=== PATIENT | male | born 1970 | race Two or more races ===

== ENCOUNTER 2017-09-05 18:00 | Emergency (ER) | payer BC, OTHER ==
[~2017-09-05] VITALS: Ht 170.2 cm; Wt 87.5 kg
--- OUTSIDE RECORDS SUMMARY | 2017-09-05 18:02 | XMS REPORT | Continuity of Care Document ---
Author Author [facility] Organization [facility] Address [address] [place] [address] ;ext= Care Team Providers Care Merchant Seaman Name Role Phone CHRIS STARR Admphys CHRIS STARR Attphys Hospital Admission Diagnosis Code Admission Diagnosis Date [id number] Chest pain Social History Element Description Code Description Smoking Status Code System Start Date End Date Smoking Status [id number] Never smoker SNOMED-CT Problems Code Code System Problem Name Start Date End Date Status [id number] SNOMED-CT Pulmonary embolism 2012 Active 9153571 SNOMED-CT Supraventricular tachycardia 2010 Active LUMBAR SURGERY Unknown Active Medications RxNorm Medication Dose Route Instructions Indications Start Date End Date Status 241107 Acetaminophen 325 MG / Hydrocodone Bitartrate 10 MG Oral Tablet 1 tablet Oral orally every 4 to 6 hours as needed. pain Active 456034 Labetalol hydrochloride 100 MG Oral Tablet 100 milligram Oral orally every 12 hours Active 62452 tizanidine 4 milligram Oral orally every 4-6 h as needed. muscle spasm Active Allergies Code Code System Allergy Substance Type Reaction Severity Start Date End Date Status 973489 RXNorm Ambien Drug allergy Unknown Active 78229 RXNorm Toradol Drug allergy Unknown Active Results Laboratory Results Order: ED2 TROPONIN I QUANTITATIVE LOINC Test Result Flag Range Unit Date 1Troponin-I 0 0.000-0.034 ng/ml 07/16/2017 14:00 Note: The 99th Percentile URL is 0.034 ng/mL. The Joint Society of Cardiology/[place] [employer] (ESC/ACC) and the National Academy of Clinical Biochemistry Standards of Laboratory Practices (NACB) recommends that the diagnosis of AMI includes the presence of clinical history suggestive of Acute Coronary Syndrome (ACS) and a maximum concentration of cardiac troponin exceeding the 99th percentile of a normal reference population [upper reference limit (URL)] on at least one occasion during the first 24 hours after the clinical event. * Performing Lab Footnotes:* [address] [place] [address] - [id number] - [address] [facility] [address] [place] [id number] FORTUNATO Luu MD: DIRECTOR ARNULFO DE LA ROSA Order: ED2 BMP LOINC Test Result Flag Range Unit Date 1Sodium 142 128-145 mmol/l 07/16/2017 11:11 1Potassium 3.5 L 3.6-5.1 mmol/l 07/16/2017 11:11 1CO2 24 18-33 mmol/l 07/16/2017 11:11 1Chloride 105 98-108 mmol/l 07/16/2017 11:11 1Glucose 196 H 73-118 mg/dl 07/16/2017 11:11 1Calcium 8.3 8.0-10.3 mg/dl 07/16/2017 11:11 1BUN 10 7-22 mg/dl 07/16/2017 11:11 1Creatinine 0.9 0.6-1.2 mg/dl 07/16/2017 11:11 * Performing Lab Footnotes:* [address] [place] [address] - [id number] - [address] [facility] [address] [place] [address], [place] [address] FORTUNATO Luu MD: DIRECTOR ARNULFO DE LA ROSA Order: ED2 CBC LOINC Test Result Flag Range Unit Date 1WBC 6.1 3.5-10.0 10^9/L 07/16/2017 11:11 1LY% 33 15.0-50.0 % 07/16/2017 11:11 1MIDS% 7.2 2.0-15.0 % 07/16/2017 11:11 1Granulocytes % 59.8 35.0-80.0 % 07/16/2017 11:11 1Lymphocytes 2 0.5-5.0 10^9/L 07/16/2017 11:11 1MID 0.4 0.1-1.5 10^9/L 07/16/2017 11:11 1Granulocytes 3.7 1.2-8.0 10^9/L 07/16/2017 11:11 1RBC 4.06 3.50-5.50 10^12/L 07/16/2017 11:11 1Hemoglobin 10.1 L 11.5-16.5 gm/dl 07/16/2017 11:11 1Hematocrit 31.4 L 35.0-55.0 % 07/16/2017 11:11 1MCV 77.4 75.0-100.0 fL 07/16/2017 11:11 1MCH 25 25.0-35.0 pg 07/16/2017 11:11 1MCHC 32.2 31.0-38.0 gm/dl 07/16/2017 11:11 1RDW % 17.9 H 11.0-16.0 % 07/16/2017 11:11 1Platelet 279 100-400 10^9/L 07/16/2017 11:11 1MPV 7.3 A 8.0-11.0 fL 07/16/2017 11:11 * Performing Lab Footnotes:* [address] [place] [address] - [id number] - [address] [facility] [address] - [place], [place] [address] [facility] - : DIRECTOR ARNULFO DE LA ROSA Order: ED2 PRO BNP LOINC Test Result Flag Range Unit Date 1Pro-BNP(B-Peptide) <15 0-125 07/16/2017 11:11 Note: THE METHODOLOGY FOR DETECTION OF B-NATRIURETIC PEPTIDE HAS BEEN CHANGED TO 'NT pro-BNP'. THE NORMAL RANGES HAVE CHANGED. PLEASE NOTE THAT RANGES ARE DEFINED BY THE AGE OF THE PATIENT. (<75 years old=0-125 pg/ml 75years and older=0-450pg/ml). VALUES ARE NOT INTERCHANGEABLE BETWEEN METHODS. 06-19-2006 * Performing Lab Footnotes:* [address] [place] [address] - [id number] - [address] [address] - [place] [address] [facility] - MD: DIRECTOR ARNULFO DE LA ROSA Radiology Results Order: [id number] ED2 CT ANGIO CHEST W CONTRAST* Exam Completion Date:07/16/2017 11 :45 Procedures: ED2 CT ANGIO CHEST W CONTRASTExam Date: 07/16/2017 11:45 AMOrdering Physician: CHRIS STARRClinical Indication: rule out peComparison: Chest CT, 02/22/14; chest radiograph, 02/13/18TECHNIQUE: Spiral multislice scanning was obtained through the thorax and aportion of the upper abdomen with a high rate of intravenous contrast infusionfor opacification of the pulmonary arteries. 2-D reconstructions were obtainedaccording to our usual protocol, utilizing a slice thickness of 3 mm or less.This exam was performed according to the our departmental dose-optimizationprogram which includes automated exposure control, adjustment of the mA and/orkV according to patient size and/ or use of iterative reconstruction techniques.Findings: NECK: Thyroid: Limited evaluation is without significant abnormality.Lymph nodes: Limited evaluation is without significant abnormality.Soft tissues: Limited evaluation is without significant abnormality.Vascular: Limited evaluation is without significant abnormality.MEDIASTINUM: Aorta: Atherosclerotic calcific plaque of the coronary arteries, aorta, andmajor branches. Airways: No significant abnormality.Lymph nodes: No lymphadenopathy.Heart: No significant abnormality.Esophagus: No significant abnormality.LUNGS: Pneumothorax: None.Lungs: Minimal bilateral dependent atelectasis. No worrisome pulmonary nodulesor masses. Effusion: None. Vascular: The pulmonary arterial vasculature is well opacified for evaluationof pulmonary embolism. No significant filling defects are demonstrated withinthe pulmonary trunk, main pulmonary arteries, segmental, or subsegmentalbranches. Airways: No significant abnormality.UPPER ABDOMEN: Hypoattenuation of the liver is consistent with hepaticsteatosis. No intrahepatic masses or lesions. Normal morphologic appearance ofthe liver. The gallbladder is present. Visualized portions of the pancreas,spleen, adrenal glands, kidneys, and gastrointestinal tract are withoutsignificant abnormality.OSSEOUS: Degenerative changes of the spine. No significant osseousabnormalities are otherwise demonstrated.OTHER: Subcutaneous port catheter is positioned within the right upper thoraxwith catheter tip overlying the superior cavoatrial junction.IMPRESSION: 1. No pulmonary embolism of the pulmonary trunk, main pulmonary arteries,segmental, or subsegmental branches.2. Other chronic disease findings, as above.This final report was electronically signed by Dr Marjorie Jang MD 07/16/2017 12: 39 PMDictated By: MARJORIE TIERNEYDate: 07/16/2017 12:46 Order: [id number] ED2 XR CHEST 2 PA LATERAL* Exam Completion Date:07/16/2017 11:00 Procedures: ED2 XR CHEST 2 PA LATERALExam Date: 07/16/2017 11:00 AMOrdering Physician: CHRIS Guevarainical Indication: cp/sobComparison: Chest radiograph 02/22/14Findings: Technique: Frontal and lateral radiographs of the chest. Medical devices: Subcutaneous port catheter overlies the right upper thoraxwith catheter tip overlying the superior cavoatrial junction. Pneumothorax: No pneumothorax. Lungs: No acute radiographic abnormalities of the pulmonary parenchyma.Effusion: None.Aorta: No significant abnormality.Heart: Normal. Bones: No significant abnormalities.Upper abdomen : Limited evaluation is without significant abnormality.Impression: No acute radiographic abnormalities of the thorax. This final report was electronically signed by Dr Marjorie Jang MD 07/16/2017 12:41 PMDictated By : MARJORIE TIERNEYDate: 07/16/2017 12:47 Vital Signs Vitals Value Date Respiratory Rate 17 07/16/2017 O2% BldC Oximetry 98 07/16/2017 BP Systolic 131 mmHg 07/16/2017 BP Diastolic 93 mmHg 07/16/2017 Height 67 in 07/16/2017 Weight Measured 187 lbs 07/16/2017 BSA (Body Surface Area) 1.71810 07/16/2017 BMI (Body Mass Index) 29.3 07/16/2017 Body Temperature 98.7 F 07/16/2017 Plan of Care * No data in the system Procedures Code Code System Procedure Name Target Site Date of Procedure ED2 XR CHEST 2 PA LATERAL 07/16/2017 12:[address] ANGIO CHEST W CONTRAST 07/16/2017 12:46 Encounters Date Code Diagnosis Status (ICD10) - R079 CHEST PAIN UNSPECIFIED Active Immunizations Vaccine Code Code System Vaccine Name Date Status FLU PNEUM Completed Functional Status * No data in the system Hospital Discharge Instructions * Discharge Instructions 2* Discharge Diagnosis* Chest Pain * Important Information* Consult your physician or return to the Emergency Department immediately if worse, if not better as expected, or if any problems arise. * Follow Up Care* Yes * Important Information* Please understand that you have received care only on an emergency basis. If your condition does not improve, you should call your personal physician for follow-up care. If you do not have a physician, you may call the referred physician listed. * If you have questions about your care or these discharge instructions, you may call the Emergency Department. Please take your discharge paperwork with you to any follow-up appointments. * Follow Up Care* Patient To Schedule * Follow-Up With:* Primary Care Physician * Activity Level* As tolerated, unrestricted * Patient Teaching* Patient education provided
--- OUTSIDE RECORDS SUMMARY | 2017-09-05 18:02 | XMS REPORT | Clinical Summary ---
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 Morphine Rash Low 04/03/2017 Break out. Ketorolac 04/03/2017 Rashes Current Medications Prescription Sig. Disp. Refills Start End Date Status Date clopidogrel (PLAVIX) 75 Take 75 mg by mouth every Active mg tablet morning. atorvastatin (LIPITOR) 40 Take 40 mg by mouth Active MG tablet nightly. HYDROcodone-acetaminophen Take 1 tablet by mouth Active (NORCO) 10-325 mg per every 4 (four) hours as tablet needed for moderate pain. fondaparinux (ARIXTRA) Inject 7.5 mg under the Active 7.5 mg/0.6 mL syringe skin every morning. tiZANidine (ZANAFLEX) 4 Take 8 mg by mouth every Active MG tablet 6 (six) hours as needed for muscle spasms. buprenorphine HCl Apply 300 mcg to cheek 2 Active (BELBUCA) 300 mcg film (two) times a day. lisinopril Take 5 mg by mouth every Active (PRINIVIL,ZESTRIL) 5 mg morning. tablet promethazine (PHENERGAN) Take 25 mg by mouth every 0 07/19/19 Active 25 MG tablet 4 (four) hours as needed. 18 BYSTOLIC 20 mg tablet Take 20 mg by mouth every 0 07/19/19 Active morning. 18 nitroglycerin (NITROSTAT) Place 0.4 mg under the Active 0.4 MG SL tablet tongue every 5 (five) minutes as needed. lisinopril Take 10 mg by mouth 07/28/19 Discontin (PRINIVIL,ZESTRIL) 10 mg daily. 18 ued tablet HYDROcodone-acetaminophen Take 1 tablet by mouth 02/16/20 Discontin (NORCO) 10-325 mg per every 4 (four) hours as 18 ued tablet needed. 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 CAD (coronary artery disease) 05/04/2016 Encounters Date Type Specialty Care Team Description 08/13/2017 [facility] General Internal Medicine Dano Ramos DO - Encounter 08/16/2017 08/13/2017 Orders Only General Internal Medicine Dano Ramos DO 07/28/2017 [facility] General Surgery Filomena Arti Chest pain in adult - Encounter MD Cuate (Primary Dx); 07/29/2017 Acquired coagulation factor deficiency; Coronary artery disease involving [place] heart with unstable angina pectoris, unspecified vessel or lesion type 04/09/2017 [facility] General Internal Medicine Vineet Fregoso MD Encounter 04/03/2017 [facility] General Internal Medicine Vineet Fregoso MD Atypical chest pain - Encounter (Primary Dx) 04/04/2017 12/19/2016 Second Opinion Hotel Maintenance Technician Orlando Drew 12/16/2016 [facility] General Internal Medicine Vineet Fregoso MD Encounter 12/15/2016 [facility] Intensive Care Deng To MD Encounter 11/06/2015 Hospital Lab Ming Robles, - Encounter 10/22/2016 after 09/04/2016 Family History Medical History Relation Name Comments Factor V Leiden Father deficiency Heart disease Mother Relation Name Status Comments Father Factor 5 Mother Social History Tobacco Use Types Packs/Day Years Used Date Never Smoker Tobacco Cessation: Counseling Given: No Alcohol Use Drinks/Week oz/Week Comments No Sex Assigned at Date Recorded Not on file Last Filed Vital Signs Vital Sign Reading Time Taken Blood Pressure 109/58 08/16/2017 2:57 AM ETHICAL HACKER Pulse 78 08/16/2017 2:57 AM ETHICAL HACKER Temperature 36.3 C (97.3 F) 08/16/2017 2:57 AM ETHICAL HACKER Respiratory Rate 18 08/16/2017 2:57 AM ETHICAL HACKER Oxygen Saturation 100% 08/16/2017 2:57 AM ETHICAL HACKER Inhaled Oxygen - - Concentration Weight 86.2 kg (190 lb) 07/28/2017 11:49 PM ETHICAL HACKER Height 170.2 cm (5' 7") 08/13/2017 3:20 PM ETHICAL HACKER Body Mass Index 28.06 07/28/2017 11:49 PM ETHICAL HACKER Plan of Treatment Health Maintenance Due Date Last Done Comments INFLUENZA VACCINE 01/10/2017 03/04/2016, 05/11/2015, 04/12/2012 Procedures Procedure Name Priority Date/Time Associated Diagnosis Comments ECHOCARDIOGRAM 2D Routine 04/04/2017 Results for this COMPLETE W MMODE SPECTRAL 8:30 AM CDT procedure are in the COLOR [facility]PLER (67127) results section. after 09/04/2016 Results * Direct Angie' (NEFTALI) (08/15/2017 10:28 AM) Component Value Ref Range Direct Angie POS Comment: testing performed at [facility], called gabi in 3main with critical 08/15/17 at 2000 Specimen Performing Laboratory [facility] DEPARTMENT OF PATHOLOGY AND GENOMIC MEDICINE [address] [place] [address] [place] [address] * Antibody identification (08/15/2017 10:28 AM) Component Value Ref Range Antibody ID POS, Anti-EComment: ADDING GCBC CHARGES Antibody ID POS, Anti-KellComment: ADDING GCBC CHARGES Antibody ID POS, Bg AntibodyComment: ADDING GCBC CHARGES Specimen Performing Laboratory [facility] DEPARTMENT OF PATHOLOGY AND GENOMIC MEDICINE [address] [place] [address] [place] [address] * Prepare RBC, 2 Units (08/15/2017 10:28 AM) Component Value Ref Range Product name Red Blood Cells -1, Leukored Unit number [id number] Product code [id number] Dispense status Transfused Blood expiration date Blood type code 6200 Blood type A POSITIVE Product name Red Blood Cells -1, Leukored Unit number [id number] Product code [id number] Dispense status Transfused Blood expiration date Blood type code 6200 Blood type A POSITIVE Specimen Performing Laboratory [facility] DEPARTMENT OF PATHOLOGY AND GENOMIC MEDICINE [address] [place] [address] [place] [address] * Type and screen (08/15/2017 10:28 AM) Component Value Ref Range ABO grouping AB Rh type POS Antibody screen POS Specimen Performing Laboratory Blood [facility] DEPARTMENT OF PATHOLOGY AND [address] [place] [address] * CBC with platelet and differential (08/15/2017 8:35 AM) Only the most recent of 5 results within the time period is included. Component Value Ref Range WBC 4.36 (L) 4.50 - 11.00 k/uL RBC 2.94 (L) 4.40 - 6.00 m/uL HGB 7.1 (L) 14.0 - 18.0 g/dL HCT 23.7 (L) 41.0 - 51.0 % MCV 80.6 (L) 82.0 - 100.0 fL MCH 24.1 (L) 27.0 - 34.0 pg MCHC 30.0 (L) 31.0 - 37.0 g/dL RDW - SD 55.8 (H) 37.0 - 55.0 fL MPV 9.5 8.8 - 13.2 fL Platelet count 280 150 - 400 k/uL Nucleated RBC 0.00 /100 WBC Neutrophils 41.6 39.0 - 69.0 % Lymphocytes 39.0 25.0 - 45.0 % Monocytes 16.7 (H) 0.0 - 10.0 % Eosinophils 2.3 0.0 - 5.0 % Basophils 0.2 0.0 - 1.0 % Immature granulocytes 0.2Comment: "Immature granulocytes" 0.0 - 1.0 % (promyelocytes, myelocytes, metamyelocytes) Specimen Performing Laboratory Blood [facility] DEPARTMENT PATHOLOGY AND [address] [place] [address] * Vancomycin level, trough (08/15/2017 8:35 AM) Component Value Ref Range Vancomycin, trough 6.1 (L) 10.0 - 20.0 ug/mL Comment: Therapeutic Ranges: Peak 30.0 - 40.0 ug/mL Trough 10.0 - 20.0 ug/mL Specimen Performing Laboratory Serum [facility] DEPARTMENT PATHOLOGY AND [address] [place] [address] * CT Angiogram Pe Chest (08/14/2017 2:28 PM) Specimen Performing Laboratory [address] [address] Narrative EXAMINATION: CT ANGIOGRAM PE CHEST CLINICAL HISTORY:46 years Male PE r o TECHNIQUE:CT angiographic images of the chest were obtained during intravenous administration of iodinated contrast. Computerized reformatted images and 3-D MIP images were also obtained and archived (CT pulmonary embolus protocol). CT imaging was performed with iterative reconstruction techniques and/or automated exposure control to reduce radiation dose. COMPARISON: None. FINDINGS: The thyroid appears unremarkable. There are no abnormal mediastinal or hilar lymph nodes identified. A right-sided ported central catheter projects with its tip in the superior vena cava above the right atrium No emboli are identified within the pulmonary vessels. There is no evidence of aneurysm or dissection involving the aorta Views of the upper abdomen which were obtained demonstrate a calcification projecting in the area of the left upper pole measuring approximately 6 to 7 mm. Within the lungs there are no pulmonary parenchymal nodules masses or areas of focal consolidation. Minimal linear opacity at the left lung base suggests an area of mild atelectasis or scar. The bones of the thorax appear osteopenic but appear intact. Impression: 1. No emboli identified. 2. Mild scarring at the lung bases. [id number] Procedure Note Hm Interface, Radiology Results Incoming - 08/14/2017 2:52 PM ETHICAL HACKER EXAMINATION: CT ANGIOGRAM PE CHEST CLINICAL HISTORY:46 years Male PE r o TECHNIQUE: CT angiographic images of the chest were obtained during intravenous administration of iodinated contrast. Computerized reformatted images and 3-D MIP images were also obtained and archived (CT pulmonary embolus protocol). CT imaging was performed with iterative reconstruction techniques and/or automated exposure control to reduce radiation dose. COMPARISON: None. FINDINGS: The thyroid appears unremarkable. There are no abnormal mediastinal or hilar lymph nodes identified. A right-sided ported central catheter projects with its tip in the superior vena cava above the right atrium No emboli are identified within the pulmonary vessels. There is no evidence of aneurysm or dissection involving the aorta Views of the upper abdomen which were obtained demonstrate a calcification projecting in the area of the left upper pole measuring approximately 6 to 7 mm. Within the lungs there are no pulmonary parenchymal nodules masses or areas of focal consolidation. Minimal linear opacity at the left lung base suggests an area of mild atelectasis or scar. The bones of the thorax appear osteopenic but appear intact. Impression: 1. No emboli identified. 2. Mild scarring at the lung bases. [id number] * Blood culture, aerobic & anaerobic (08/14/2017 10:40 AM) Component Value Ref Range Blood culture isolate No growth after 5 days of incubation. Comment: Specimen Information Specimen Source: Blood Specimen Site: Line, port-a-cath Right Specimen Performing Laboratory Blood - Line, port-a-cath [facility] DEPARTMENT OF PATHOLOGY AND GENOMIC MEDICINE [address] [place] [address] * Influenza antigen (08/14/2017 10:10 AM) Component Value Ref Range Influenza antigen Negative for Influenza A/B antigen. Comment: Specimen Information Specimen Source: Nares Specimen Site: Not specified Specimen Performing Laboratory Nares - Not specified [facility] DEPARTMENT OF PATHOLOGY AND GENOMIC MEDICINE [address] [place] [address] [place] [address] * Estimated GFR (08/14/2017 5:10 AM) Only the most recent of 4 results within the time period is included. Component Value Ref Range GFR Non Af Amer 59 (A) mL/min/1.73 m2 GFR Af Amer 72 mL/min/1.73 m2 Comment: Chronic kidney disease: <60 mL/min/1.73m2 Kidney failure: <15 mL/min/1.73m2 The estimated GFR is calculated from the IDMS-traceable Modification of Diet in Renal Disease Equation. The accuracy of the calculation is poor when the creatinine is normal. Calculated values >90 mL/min/1.73m2 are not reported. This equation has not been validated in children (<18 years), women, the elderly (>70 years), or ethnic groups other than Caucasians and Americans. Specimen Performing Laboratory Plasma specimen [facility] DEPARTMENT OF PATHOLOGY AND GENOMIC [address] [place] [address] * Basic metabolic panel (08/14/2017 5:10 AM) Only the most recent of 4 results within the time period is included. Component Value Ref Range Sodium 133 (L) 135 - 148 mEq/L Potassium 4.1 3.5 - 5.0 mEq/L Chloride 97 (L) 98 - 112 mEq/L CO2 24 24 - 31 mEq/L Anion gap 12 7 - 15 mEq/L Comment: Starting from September , anion gap calculation no longer incorporates potassium. Please note the change. BUN 20 6 - 20 mg/dL Creatinine 1.3 (H) 0.7 - 1.2 mg/dL Glucose 119 (H) 65 - 99 mg/dL Calcium 8.8 8.3 - 10.2 mg/dL Specimen Performing Laboratory Plasma specimen [facility] PATHOLOGY AND [employer] [facility] [address] [place] [address] * Troponin (08/14/2017 12:07 AM) Only the most recent of 8 results within the time period is included. Component Value Ref Range Troponin <0.300 0.000 - 0.300 ng/mL Comment: 0.30 - 1.49 ng/ml May indicate increased risk of acute coronary syndrome. >=1.5 ng/ml Consistent with acute myocardial infarction. The diagnostic value of a single normal or non-diagnostic result is questionable. Serial samples at 2-6 hour intervals are required to rule out acute myocardial injury. Specimen Performing Laboratory Plasma specimen [facility] PATHOLOGY AND [facility] [address] [place] [address] * Lipid panel (08/13/2017 2:47 PM) Only the most recent of 2 results within the time period is included. Component Value Ref Range Cholesterol 189 <200 mg/dL Triglycerides 65 <150 mg/dL HDL cholesterol 72 >40 mg/dL LDL cholesterol 116 (H)Comment: Result obtained by direct LDL <100 mg/dL measurement Lipid panel SeeBelow interpretation Comment: Total Cholesterol (mg/dL) <200 Desirable 200-239 Borderline-high >=240 High Triglycerides (mg/dL) <150 Normal 150-199 Borderline-high 200-499 High >=500 Very high HDL Cholesterol (mg/dL) <40 Low (male) <40 Low (female) LDL Cholesterol (mg/dL) <100 Optimal 100-129 Near or above optimal 130-159 Borderline-high 160-189 High >=190 Very high Risk Catergories that modify LDL goals. Risk Catergories LDL goal (mg/dL) CHD and CHD risk equivalent <100 (10-year risk >20%) Multiple (2+) risk factors <130 (10-year risk=<20%) 0-1 risk factors <160 (<10-year risk) Defining levels of lipids in metabolic syndrome Triglycerides >=150 mg/dL HDL Cholesterol Men <40 mg/dL Women <40 mg/dL Non-HDL cholesterol is a second target for therapy in persons with high triglycerides (>=200 mg/dL) Specimen Performing Laboratory Plasma specimen [facility] PATHOLOGY AND [facility] [address] [place] [address] * ECG 12 lead (07/29/2017 11:02 AM) Only the most recent of 5 results within the time period is included. Component Value Ref Range Ventricular rate 76 Atrial rate 76 DC interval 180 QRSD interval 88 QT interval 368 QTC interval 414 P axis 1 47 QRS axis 1 34 T wave axis 44 EKG impression Normal sinus rhythm-Normal ECG-In automated comparison with ECG of 28-JUL-2017 22:59,-No significant change was found- Specimen Performing Laboratory [facility] [address] [place] [address] * Echocardiogram complete w contrast and 3D if needed (04/04/2017 8:30 AM) Component Value Ref Range Velocity Ratio (V1/V2) 0.74 m/s IVS,d 0.95 0.6 - 1.2 cm Ao root annulus 3.08 cm EF 57.77 % LVPWD,d 0.87 cm AoV Mean PG 2.71 mmHg AV LVOT peak gradient 2.88 mmHg MV valve area p 1/2 4.63 cm2 method PV Pk Grad 2.20 mmHg E/A ratio 0.98 E wave decelartion time 164.00 msec IVRT 117.65 msec LVOT Diam,S 2.04 cm LVOT area 3.27 cm2 LVOT Vmax 0.85 m/s LVOT VTI 0.17 m AoV Peak PG 5.32 mmHg MV Peak E John 0.54 m/s MV stenosis pressure 1/2 47.56 ms time MV Peak A John 0.55 m/s AoV Area, Vmax 2.40 cm2 AoV Area, VTI 2.78 cm2 AoV Vmax 1.15 m/s IVS/LVPW,2D 1.09 LA Area d A4C 12.88 cm2 LV,d 3.79 cm LV,s 2.66 cm PV VMAX 0.74 m/s MV E A ratio 0.97 mmHg LV SYS VOL 25.93 ml LV NEWBY VOL 61.40 ml LV SV Teich 2D 35.47 ml LV Vol s Teich PSAX 25.93 ml AoV Vmn 0.78 LA Ao Ratio Mmode 1.15 LV FS Cube 2D 29.86 LV FS Teich 2D 29.86 AoV VTI 0.20 m LV EF,2D 65.49 % MV AE ratio 1.03 LVOT Vmn 0.64 Aov area Vmn 2.67 cm2 LA Vol d MOD A4C 32.07 ml LVOT mean grad 1.74 mmHg LV SV Cube 2D 35.53 ml LV vol d cube 2D 54.25 ml LV vol s cube 2D 18.72 ml MV Decel slope 3.27 m/s2 Specimen Performing Laboratory [facility] [address] [place] [address] Narrative The left ventricle is not well visualized, grossly normal wall motion. Left Ventricular ejection fraction is 55 - 60%. Spectral Doppler shows normal pattern of LV diastolic filling The aortic valve appears normal Trace mitral valve regurgitation The tricuspid valve appears normal The pulmonic valve appears normal Normal right ventricular size, wall thickness and global function * CK-MB (04/04/2017 12:12 AM) Only the most recent of 3 results within the time period is included. Component Value Ref Range CK-MB 1.3 1.0 - 10.4 ng/mL Specimen Performing Laboratory Plasma specimen [facility] PATHOLOGY AND [address] [address] * D-dimer (04/04/2017 12:12 AM) Component Value Ref Range D-dimer 0.36 0.00 - 0.40 ug/mL Comment: Units are ug/ml Fibrinogen Equivalent Unit. When combined with low clinical probability, D-dimer results of less than 0.5 ug/ml FEU have a good negative predictive value in excluding PE or DVT. For D-dimer results greater than 0.5 ug/ml FEU further testing is indicated if PE or DVT is suspected clinically. Elevated D-dimer results have been reported in DVT, PE, and DIC cases and may indicate the presence of a clot. D-dimer results may be elevated due to old age, , inflammatory diseases, trauma, post-operative states, sepsis, and malignancies. Specimen Performing Laboratory Blood [facility] PATHOLOGY AND [address] [address] * Creatine kinase, total (CPK) (04/04/2017 12:12 AM) Only the most recent of 3 results within the time period is included. Component Value Ref Range Creatine kinase 98 39 - 308 U/L Specimen Performing Laboratory Plasma specimen [facility] PATHOLOGY AND [address] [address] * Partial thromboplastin time, activated (12/15/2016 1:50 PM) Component Value Ref Range PTT 29.7 23.0 - 36.0 sec Comment: PTT therapeutic range for unfractionated heparin is 61.0-112.0 seconds which corresponds to Anti-Xa 0.3-0.7 U/ml. Specimen Performing Laboratory Blood [facility] PATHOLOGY AND GENOMIC MEDICINE [address] [place] [address] * Prothrombin time with INR (12/15/2016 1:50 PM) Component Value Ref Range Prothrombin time 13.6 12.0 - 15.0 sec INR 1.0 Comment: The International Normalized Ratio (INR) is a therapeutic monitoring tool for patients who are stable on oral anticoagulant therapy. An INR of 2.0-3.0 is suggested for deep vein thrombosis/pulmonary embolism. Specimen Performing Laboratory Blood [facility] OF PATHOLOGY AND GENOMIC MEDICINE [address] [place] [address] * Magnesium level (12/15/2016 1:50 PM) Component Value Ref Range Magnesium 1.9 1.7 - 2.4 mg/dL Specimen Performing Laboratory Plasma specimen [facility] OF PATHOLOGY AND GENOMIC MEDICINE [address] [place] [address] * POC glucose (12/15/2016 1:44 PM) Component Value Ref Range POC glucose 129 (H) 65 - 99 mg/dL Comment: [facility] Notified RN Meter ID: [id number] Code Enforcement Inspector: Zee Horvath Specimen Performing Laboratory [facility] PATHOLOGY AND [employer] MEDICINE [address] [place] [address] after 09/04/2016 Insurance Payer Benefit Subscriber ID Type Phone Address Plan / Group BCBS EXCHANGE BLUE xxxxxxxxxxxx Exchange ADVANTAGE HMO EXCH Home:
--- OUTSIDE RECORDS SUMMARY | 2017-09-05 18:02 | XMS REPORT ---
Author Author [facility] Address Unknown Phone Unavailable Care Team Providers Care Leisure Studies Professor Name Role Phone MARC SARABIA Unavailable Unavailable CHRIS STARR Unavailable Unavailable OMARMILADIS Sadler Unavailable Unavailable FREEMAN, BHAGWAT Unavailable Unavailable Divinsky, Ianir Unavailable Unavailable SRESHTA, DAHLIA Unavailable Unavailable RAY-DRODDY, SAMMY Unavailable Unavailable Problems This patient has no known problems. Allergies, Adverse Reactions, Alerts This patient has no known allergies or adverse reactions. Medications This patient has no known medications. Encounters Start Date/Time End Date/Time Encounter Type Admission Type Attending [facility] Care Department Encounter ID 2017-08-17 13:45:00 2017-08-17 17:07:00 Emergency E MARC SARABIA [facility] [id number] Results Test Description Test Time Test Comments Text Results Atomic Results Result Comments CARDIAC PANEL TRIAGE GP 2017-08-17 16:40:00 TROPONIN I (test code=GTPI) <0.05 ng/mL <=0.05 CKMB (test code=GCKMP) <1.0 ng/mL <=4.2 DRUGS OF ABUSE*GP*2017-08-17 15:54:00* Test Item Value Reference Range Comments DRUG SCRN (test code=HDOA) URINE DRUG SCREEN This is an unconfirmed screening result and should not be used for non-medical purposes PHENCYCLID (test code=GPCP) Negative NEGATIVE BENZODIAZP (test code=GBZO) Negative NEGATIVE COCAINE (test code=GCOC) Negative NEGATIVE AMPHETHETM (test code=GAMP) Negative NEGATIVE THC (test code=GTHC) Negative NEGATIVE OPIATES (test code=JOLENE) Positive NEGATIVE BARBITURAT (test code=GBAR) Negative NEGATIVE DOAH (test code=GDOAH) URINE DRUG SCREEN Cut-off values are as follows: Phencyclidine 25 ng/mL Tetrahydrocannabinol 50 ng/mL Benzodiazepines 300 ng/mL Opiates 300 ng/mL Cocaine 300 ng/mL Barbiturates 300 ng/mL Amphetamines 1000 ng/mL CT PE PROTOCOL*GP*2017-08-17 15:51:58CT CHEST WITH CONTRAST, PE PROTOCOL: Location code: [id number] HISTORY: [id number]: Chest pain, shortness of breathCOMPARISON: 06/15/16, 11/03/15, 04/28/15, 01/26/15TECHNIQUE: Following the administration of a timed IV contrast bolus, helicalCT of the chest was performed. Thin section axial, coronal, and sagittalimages were obtained. Oblique sagittal maximum intensity reformatted images ofthe pulmonary arteries were also obtained. Automatic exposure control wasutilized. Total DLP: 594.49 mGycmFINDINGS: There is no filling defect within the pulmonary arteries to suggest pulmonaryembolus. The aorta is of normal caliber and contour. The lungs are clear. There is no consolidation or effusion. The centralairways are patent.There is no mediastinal adenopathy or mass. There is no pericardial effusion.Right chest port remains. Nonobstructing bilateral renal calculi are noted. Images through the upperabdomen are otherwise unremarkable.The bones, skin and surrounding soft tissues are unremarkable. IMPRESSION:1. Negative for PE.2. Stable exam with no acute intrathoracic abnormality.URINALYSIS W/O MICROSCOPICGP2017-08-17 15:43:00* Test Item Value Reference Range Comments COLOR (test code=COLU) Yellow YELLOW CLARITY (test code=CLA) Clear CLEAR GLUCOSE UR (test code=UA GLUCOSE) Negative NEGATIVE BILI UR (test code=BILE) Negative NEGATIVE KETONES UR (test code=TESS) Negative NEGATIVE SP GRAVITY (test code=SPGR) 1.020 1.005-1.030 PH UR (test code=PH) 7.0 4.5-8.0 PROTEIN UR (test code=PU) Negative NEGATIVE NITRITE UR (test code=NITRITE) Negative NEGATIVE UROBIL UR (test code=GUROQ) 0.2 E.U./dL UROBIL UR (test code=GUROQC) 0.2 - 1.0 EU/dL BLOOD UR (test code=UA BLOOD) Negative NEGATIVE LEUK ES UR (test code=LEUK) Negative NEGATIVE CARDIAC PANEL TRIAGE GP2017-08-17 14:32:00* Test Item Value Reference Range Comments TROPONIN I (test code=GTPI) <0.05 ng/mL <=0.05 CKMB (test code=GCKMP) 1.2 ng/mL <=4.2 COMPREHENSIVE METABOLIC MÁRQUEZ *GP* [id number] 14:23:00* Test Item Value Reference Range Comments ALBUMIN (test code=GALB) 4.0 g/dL 3.5-5.5 ALK PHOS (test code=GALP) 61 U/L 53-128 ALT (test code=GALT) 25 U/L 10-47 AST (test code=RADHA) 35 U/L 11-38 BUN (test code=GBUN) 9 mg/dL 7-22 CALCIUM (test code=GCL+) 9.0 mg/dL 8.0-10.3 CHLORIDE (test code=GCL-) 105 mmol/L 98-108 CREATININE (test code=GCRE) 0.9 mg/dL 0.6-1.2 GLUCOSE (test code=GGUL) 123 mg/dL 73-118 POTASSIUM (test code=GK+) 3.8 mmol/L 3.6-5.1 SODIUM (test code=GNA+) 138 mmol/L 128-145 BILI TOTAL (test code=GTBIL) 0.6 mg/dL 0.2-1.6 TCO2 (test code=GTC02) 27 mmol/L 18-33 PROTEIN (test code=GTP) 7.4 g/dL 6.4-8.1 CHEST 1 VIEW*GP*2017-08-17 14:20:51Portable AP chest, 1 viewLocation Code: [id number] HISTORY: [id number]: Chest painCOMPARISON: 08/23/16COMMENT: The lungs are clear and well inflated. The costophrenic angles are sharp. Thecardiomediastinal silhouette is unremarkable. The bones are intact. Right fprvjSogs-Q-Qecb tip overlies the superior vena cava, unchanged.IMPRESSION: Stable chest with no acute abnormality.CBC (INCLUDES AUTOMATED DIFFERENTIAL) * 2017-08-17 14:14:00* Test Item Value Reference Range Comments WBC (test code=WBC) 7.1 10\\S\\3/uL 4.5-11.0 RBC (test code=RBC) 4.55 10\\S\\6/uL 4.20-5.60 HGB (test code=HBG) 11.0 g/dL 14.0-18.0 HCT (test code=HCT) 34.0 % 35.0-46.0 MCV (test code=MCV) 74.8 fL 80.0-94.0 MCH (test code=GMCH) 24.1 pg 28.2-32.8 MCHC (test code=MCHC) 32.2 g/dL 32.0-36.0 RDW (test code=RDW) 17.4 % 11.5-14.5 PLT (test code=PLT) 320 10\\S\\3/uL 130-400 NEUTROP # (test code=NE#) 5.0 10\\S\\3/uL 2.0-8.0 LYMPH # (test code=LY#) 1.7 10\\S\\3/uL 1.2-4.0 MID # (test code=GMID#) 0.4 10\\S\\3/uL 0.0-1.1 GRA % (test code=GRA%) 70.3 % 35.0-73.0 LYMPH % (test code=GLY%) 23.9 % 20.0-55.0 MID % (test code=GMID%) 5.8 % 0.0-10.0 ED2 TROPONIN-I [id number] 14:21:00* Test Item Value Reference Range Comments Troponin-I (test code=TROP) 0.000 ng/ml 0.000-0.034 The 99th Percentile URL is 0.034 ng/mL. The Joint Society of Cardiology/[place] [employer] (ESC/ACC) and the National [...] first 24 hours after the clinical event. ED2 XR CHEST 2 PA [id number] 12:47:27Procedures: ED2 XR CHEST 2 PA LATERALExam Date: 07/16/2017 11:00 AMOrdering Physician: CHRIS Guevarainical Indication: cp/sobComparison: Chest radiograph 02/22/14Findings:Technique: Frontal and lateral radiographs of the chest.Medical devices: Subcutaneous port catheter overlies the right upper thoraxwith catheter tip overlying the superior cavoatrial junction.Pneumothorax: No pneumothorax.Lungs: No acute radiographic abnormalities of the pulmonary parenchyma.Effusion: None.Aorta: No significant abnormality.Heart: Normal.Bones: No significant abnormalities.Upper abdomen: Limited evaluation is without significant abnormality.Impression:No acute radiographic abnormalities of the thorax.This final report was electronically signed by Dr Marjorie Jang MD07/16/2017 12: 41 PMDictated By: MARJORIE TIERNEYDate: 07/16/2017 12:47ED2 CT ANGIO CHEST W [id number] 12:46:17Procedures: ED2 CT ANGIO CHEST W CONTRASTExam Date: 07/16/2017 11:45 AMOrdering Physician: CHRIS Guevarainical Indication: rule out peComparison: Chest CT, 02/22/14; chest radiograph, TECHNIQUE: Spiral multislice scanning was obtained through the thorax and aportion of the upper abdomen with a high rate of intravenous contrast infusionfor opacification of the pulmonary arteries. 2-D reconstructions were obtainedaccording to our usual protocol, utilizing a slice thickness of 3 mm or less.This exam was performed according to the our departmental dose- optimizationprogram which includes automated exposure control, adjustment of the mA and/orkV according to patient size and/or use of iterative reconstruction techniques.Findings:NECK:Thyroid: Limited evaluation is without significant abnormality.Lymph nodes: Limited evaluation is without significant abnormality.Soft tissues: Limited evaluation is without significant abnormality.Vascular: Limited evaluation is without significant abnormality.MEDIASTINUM:Aorta: Atherosclerotic calcific plaque of the coronary arteries, aorta, andmajor branches.Airways: No significant abnormality.Lymph nodes: No lymphadenopathy.Heart: No significant abnormality.Esophagus: No significant abnormality.LUNGS:Pneumothorax: None.Lungs: Minimal bilateral dependent atelectasis. No worrisome pulmonary nodulesor masses.Effusion: None.Vascular: The pulmonary arterial vasculature is well opacified for evaluationof pulmonary embolism. No significant filling defects are demonstrated withinthe pulmonary trunk, main pulmonary arteries, segmental, or subsegmentalbranches.Airways: No significant abnormality.UPPER ABDOMEN: Hypoattenuation of the [...] thoraxwith catheter tip overlying the superior cavoatrial junction.IMPRESSION:1. No pulmonary embolism of the pulmonary trunk, main pulmonary arteries,segmental, or subsegmental branches.2. Other chronic disease findings, as above.This final report was electronically signed by Dr Marjorie Jang MD07/16/2017 12:39 PMDictated By: MARJORIE TIERNEYDate: 07/16/2017 12:46ED2 TROPONIN-I [id number] 11:38:00* Test Item Value Reference Range Comments Troponin-I (test code=TROP) 0.000 ng/ml 0.000-0.034 The 99th Percentile URL is 0.034 ng/mL. The Joint Society of Cardiology/[place] [employer] (ESC/ACC) and the National [...] first 24 hours after the clinical event. ED2 [id number] 11:38:00* Test Item Value Reference Range Comments Pro-BNP(B-Peptide) (test code=PROBNP) <15 0-125 THE METHODOLOGY FOR DETECTION OF B-NATRIURETIC PEPTIDE HAS BEEN CHANGED TO "NT pro-BNP". THE NORMAL RANGES HAVE CHANGED. PLEASE NOTE THAT RANGES ARE DEFINED BY THE AGE OF THE PATIENT. (<75 years old=0-125 pg/ml 75years and older=0-450pg/ml). VALUES ARE NOT INTERCHANGEABLE BETWEEN METHODS. 06-19-2006 ED2 [id number] 11:31:00* Test Item Value Reference Range Comments Sodium (test code=NA) 142 mmol/l 128-145 Potassium (test code=K) 3.5 mmol/l 3.6-5.1 CO2 (test code=CO2) 24 mmol/l 18-33 Chloride (test code=CL) 105 mmol/l 98-108 Glucose (test code=GLU) 196 mg/dl 73-118 Calcium (test code=CALC) 8.3 mg/dl 8.0-10.3 BUN (test code=BUN) 10 mg/dl 7-22 Creatinine (test code=CREA) 0.9 mg/dl 0.6-1.2 ED2 [id number] 11:21:00* Test Item Value Reference Range Comments WBC (test code=WBC) 6.1 10\\S\\9/L 3.5-10.0 LY% (test code=LY) 33.0 % 15.0-50.0 MIDS% (test code=MIDS) 7.2 % 2.0-15.0 Granulocytes % (test code=GRA%) 59.8 % 35.0-80.0 Lymphocytes (test code=LYMPH) 2.0 10\\S\\9/L 0.5-5.0 MID (test code=MID) 0.4 10\\S\\9/L 0.1-1.5 Granulocytes (test code=GRAN) 3.7 10\\S\\9/L 1.2-8.0 RBC (test code=RBC) 4.06 10\\S\\12/L 3.50-5.50 Hemoglobin (test code=HGB) 10.1 gm/dl 11.5-16.5 Hematocrit (test code=HCT) 31.4 % 35.0-55.0 MCV (test code=MCV) 77.4 fL 75.0-100.0 MCH (test code=MCH) 25.0 pg 25.0-35.0 MCHC (test code=MCHC) 32.2 gm/dl 31.0-38.0 RDW % (test code=RDW%) 17.9 % 11.0-16.0 Platelet (test code=PLT) 279 10\\S\\9/L 100-400 MPV (test code=MPV) 7.3 fL 8.0-11.0 TROPONIN [id number] 07:00:00* Test Item Value Reference Range Comments TROPONIN I (KEYANA) (test iooc=604) < ng/mL 0.00-0.15 Troponin I (TnI) levels must be interpreted in the context of the presenting symptoms and the clinical findings. Elevated TnI levels indicate myocardial damage, but are not specific for ischemic heart disease. Elevated TnI levels are seen in patients with other cardiac conditions (including myocarditis and congestive heart failure), and slight TnI elevations occur in patients with other conditions, including sepsis, renal failure, acidosis, acute neurological disease, and persistent tachyarrhythmia.TROPONIN [id number] 00:40:00* Test Item Value Reference Range Comments TROPONIN I (KEYANA) (test qgdj=993) < ng/mL 0.00-0.15 Troponin I (TnI) levels must be interpreted in the context of the presenting symptoms and the clinical findings. Elevated TnI levels indicate myocardial damage, but are not specific for ischemic heart disease. Elevated TnI levels are seen in patients with other cardiac conditions (including myocarditis and congestive heart failure), and slight TnI elevations occur in patients with other conditions, including sepsis, renal failure, acidosis, acute neurological disease, and persistent tachyarrhythmia.HEMOGLOBIN [id number] 19:40:00* Test Item Value Reference Range Comments HEMOGLOBIN A1C (KEYANA) (test lzko=024) 5.3 % 4.3-6.1 TROPONIN [id number] 18:43:00* Test Item Value Reference Range Comments TROPONIN I (KEYANA) (test ehsm=955) < ng/mL 0.00-0.15 Troponin I (TnI) levels must be interpreted in the context of the presenting symptoms and the clinical findings. Elevated TnI levels indicate myocardial damage, but are not specific for ischemic heart disease. Elevated TnI levels are seen in patients with other cardiac conditions (including myocarditis and congestive heart failure), and slight TnI elevations occur in patients with other conditions, including sepsis, renal failure, acidosis, acute neurological disease, and persistent tachyarrhythmia.BASIC METABOLIC [id number] 18:24:00 * Test Item Value Reference Range Comments SODIUM (BEAKER) (test wcox=796) 139 meq/L 135-148 POTASSIUM (BEAKER) (test eelc=371) 3.5 meq/L 3.6-5.5 CHLORIDE (BEAKER) (test hezm=765) 105 meq/L 98-106 CO2 (BEAKER) (test qikt=687) 26 meq/L 20-29 BLOOD UREA NITROGEN (BEAKER) (test mqkj=872) 15 mg/dL 10-26 CREATININE (BEAKER) (test zgpl=078) 1.00 mg/dL 0.50-1.20 GLUCOSE RANDOM (BEAKER) (test hkct=169) 94 mg/dL 70-110 CALCIUM (BEAKER) (test khnq=934) 8.6 mg/dL 8.5-10.5 EGFR (BEAKER) (test akqn=9688) 80 mL/min/1.73 sq m ESTIMATED GFR IS NOT ACCURATE CREATININE CLEARANCE IN PREDICTING GLOMERULAR FILTRATION RATE. ESTIMATED GFR IS NOT APPLICABLE FOR DIALYSIS PATIENTS. CBC W/PLT COUNT & AUTO [id number] 18:01:00* Test Item Value Reference Range Comments WHITE BLOOD CELL COUNT (BEAKER) (test uupq=639) 8.5 K/ L 4.0-10.0 RED BLOOD CELL COUNT (BEAKER) (test ixbu=557) 3.95 M/ L 4.20-5.80 HEMOGLOBIN (BEAKER) (test nzyk=113) 11.4 GM/DL 13.0-16.8 HEMATOCRIT (BEAKER) (test zxzl=460) 34.6 % 40.0-50.0 MEAN CORPUSCULAR VOLUME (BEAKER) (test ccvd=584) 87.4 fL 82.0-98.0 MEAN CORPUSCULAR HEMOGLOBIN (BEAKER) (test znjd=795) 28.9 pg 27.0-33.0 MEAN CORPUSCULAR HEMOGLOBIN CONC (BEAKER) (test zvee=402) 33.0 GM/DL 32.0- 36.0 RED CELL DISTRIBUTION WIDTH (BEAKER) (test rokb=004) 15.7 % 10.3-14.2 PLATELET COUNT (BEAKER) (test xsti=913) 368 K/CU MM 150-430 MEAN PLATELET VOLUME (BEAKER) (test fsur=150) 7.1 fL 6.5-10.5 NUCLEATED RED BLOOD CELLS (BEAKER) (test fcpp=094) 0 /100 WBC 0-0 NEUTROPHILS RELATIVE PERCENT (BEAKER) (test wedz=834) 50 % LYMPHOCYTES RELATIVE PERCENT (BEAKER) (test updh=609) 32 % MONOCYTES RELATIVE PERCENT (BEAKER) (test gbys=788) 15 % EOSINOPHILS RELATIVE PERCENT (BEAKER) (test fvlo=102) 2 % BASOPHILS RELATIVE PERCENT (BEAKER) (test cmrm=865) 0 % NEUTROPHILS ABSOLUTE COUNT (BEAKER) (test ywtt=922) 4.30 K/ L 1.80-8.00 LYMPHOCYTES ABSOLUTE COUNT (BEAKER) (test ucdy=055) 2.70 K/ L 1.48-4.50 MONOCYTES ABSOLUTE COUNT (BEAKER) (test bsms=243) 1.30 K/ L 0.00-1.30 EOSINOPHILS ABSOLUTE COUNT (BEAKER) (test vyfq=644) 0.20 K/ L 0.00-0.50 BASOPHILS ABSOLUTE COUNT (BEAKER) (test gyas=904) 0.00 K/ L 0.00-0.20 CREATINE KINASE (CK), TOTAL AND [id number] 12:25:00* Test Item Value Reference Range Comments CREATINE KINASE TOTAL (BEAKER) (test svnn=583) 72 U/L 40-250 CREATINE KINASE-MB (BEAKER) (test icqs=456) 0.9 ng/mL 0.0-4.9 CREATINE KINASE-MB INDEX (BEAKER) (test pfnx=619) 1.3 % CK-MB Reference Range:<5 Normal5-10 Borderline>10 AbnormalTROPONIN [id number] 12:25:00* Test Item Value Reference Range Comments TROPONIN I (BEAKER) (test aoun=773) < ng/mL 0.00-0.15 Troponin I (TnI) levels must be interpreted in the context of the presenting symptoms and the clinical findings. Elevated TnI levels indicate myocardial damage, but are not specific for ischemic heart disease. Elevated TnI levels are seen in patients with other cardiac conditions (including myocarditis and congestive heart failure), and slight TnI elevations occur in patients with other conditions, including sepsis, renal failure, acidosis, acute neurological disease, and persistent tachyarrhythmia.(MANUAL DIFFERENTIAL)2017-03-14 06:04:00 * Test Item Value Reference Range Comments NEUTROPHILS - REL (DIFF) (BEAKER) (test ciou=0896) 38 % LYMPHOCYTES - REL (DIFF) (BEAKER) (test qiww=8071) 46 % MONOCYTES - REL (DIFF) (BEAKER) (test sepy=7572) 11 % EOSINOPHILS - REL (DIFF) (BEAKER) (test wzeb=2931) 5 % NEUTROPHILS - ABS (DIFF) (BEAKER) (test lklm=2863) 2.13 K/ L 1.80-8.00 LYMPHOCYTES - ABS (DIFF) (BEAKER) (test uroy=6536) 2.58 K/ L 1.48-4.50 MONOCYTES - ABS (DIFF) (BEAKER) (test frbc=4347) 0.62 K/ L 0.00-1.30 EOSINOPHILS - ABS (DIFF) (BEAKER) (test lept=6307) 0.28 K/ L 0.00-0.50 TOTAL COUNTED (BEAKER) (test mmym=1562) 100 WBC MORPHOLOGY (BEAKER) (test jnfw=390) Normal PLT MORPHOLOGY (BEAKER) (test cpsb=988) Normal RBC MORPHOLOGY (BEAKER) (test pzvs=624) Normal CBC W/PLT COUNT & AUTO [id number] 06:02:00* Test Item Value Reference Range Comments WHITE BLOOD CELL COUNT (BEAKER) (test rbdi=829) 5.6 K/ L 4.0-10.0 RED BLOOD CELL COUNT (BEAKER) (test cwfq=675) 3.60 M/ L 4.20-5.80 HEMOGLOBIN (BEAKER) (test rjuc=832) 10.6 GM/DL 13.0-16.8 HEMATOCRIT (BEAKER) (test hrmi=158) 32.3 % 40.0-50.0 MEAN CORPUSCULAR VOLUME (BEAKER) (test qsxq=940) 89.8 fL 82.0-98.0 MEAN CORPUSCULAR HEMOGLOBIN (BEAKER) (test jwif=478) 29.3 pg 27.0-33.0 MEAN CORPUSCULAR HEMOGLOBIN CONC (BEAKER) (test krjl=709) 32.7 GM/DL 32.0- 36.0 RED CELL DISTRIBUTION WIDTH (BEAKER) (test mcag=383) 15.9 % 10.3-14.2 PLATELET COUNT (BEAKER) (test qzil=751) 312 K/CU MM 150-430 MEAN PLATELET VOLUME (BEAKER) (test rbec=497) 6.9 fL 6.5-10.5 NUCLEATED RED BLOOD CELLS (BEAKER) (test mtmi=351) 0 /100 WBC 0-0 TROPONIN [id number] 05:22:00* Test Item Value Reference Range Comments TROPONIN I (BEAKER) (test ugdb=087) < ng/mL 0.00-0.15 Troponin I (TnI) levels must be interpreted in the context of the presenting symptoms and the clinical findings. Elevated TnI levels indicate myocardial damage, but are not specific for ischemic heart disease. Elevated TnI levels are seen in patients with other cardiac conditions (including myocarditis and congestive heart failure), and slight TnI elevations occur in patients with other conditions, including sepsis, renal failure, acidosis, acute neurological disease, and persistent tachyarrhythmia.CREATINE KINASE (CK), TOTAL AND [id number] 05:21:00* Test Item Value Reference Range Comments CREATINE KINASE TOTAL (BEAKER) (test yzfj=570) 71 U/L 40-250 CREATINE KINASE-MB (BEAKER) (test lnpg=206) 0.8 ng/mL 0.0-4.9 CREATINE KINASE-MB INDEX (BEAKER) (test qdno=365) 1.1 % CK-MB Reference Range:<5 Normal5-10 Borderline>10 AbnormalCOMPREHENSIVE METABOLIC [id number] 05:14:00* Test Item Value Reference Range Comments TOTAL PROTEIN (BEAKER) (test mted=913) 6.4 gm/dL 6.0-8.5 ALBUMIN (BEAKER) (test isey=3268) 3.7 g/dL 3.5-5.0 ALKALINE PHOSPHATASE (BEAKER) (test wpso=726) 67 U/L 30-115 BILIRUBIN TOTAL (BEAKER) (test elpe=969) 0.3 mg/dL 0.1-1.2 SODIUM (BEAKER) (test yjkw=131) 141 meq/L 135-148 POTASSIUM (BEAKER) (test syhy=315) 3.7 meq/L 3.6-5.5 CHLORIDE (BEAKER) (test qcqk=362) 106 meq/L 98-106 CO2 (BEAKER) (test azkd=981) 26 meq/L 20-29 BLOOD UREA NITROGEN (BEAKER) (test enwm=647) 19 mg/dL 10-26 CREATININE (BEAKER) (test sgpb=577) 1.00 mg/dL 0.50-1.20 GLUCOSE RANDOM (BEAKER) (test gwtw=999) 104 mg/dL 70-110 CALCIUM (BEAKER) (test tmhf=390) 9.0 mg/dL 8.5-10.5 AST (SGOT) (BEAKER) (test njwm=537) 14 U/L 5-40 ALT (SGPT) (BEAKER) (test ndqo=975) 10 U/L 5-50 EGFR (BEAKER) (test dhit=6367) 80 mL/min/1.73 sq m ESTIMATED GFR IS NOT ACCURATE CREATININE CLEARANCE IN PREDICTING GLOMERULAR FILTRATION RATE. ESTIMATED GFR IS NOT APPLICABLE FOR DIALYSIS PATIENTS. LIPID [id number] 05:13:00* Test Item Value Reference Range Comments TRIGLYCERIDES (BEAKER) (test treu=591) 159 mg/dL CHOLESTEROL (BEAKER) (test mkuu=377) 205 mg/dL HDL CHOLESTEROL (BEAKER) (test xptv=294) 62 mg/dL LDL CHOLESTEROL CALCULATED (BEAKER) (test cdvp=994) 111 mg/dL Triglyceride Reference Range: Low Risk <150 Borderline 150-199 High Risk 200-499 Very High Risk >=500Cholesterol Reference Range: Low Risk <200 Borderline 200-239 High Risk >240HDL Cholesterol Reference Range: Low Risk >=60 High Risk <40LDL Cholesterol Reference Range: Optimal <100 Near Optimal 100-129 Borderline 130-159 High 160-189 Very High >=190 CREATINE KINASE (CK), TOTAL AND [id number] 23:03:00* Test Item Value Reference Range Comments CREATINE KINASE TOTAL (BEAKER) (test qzwz=738) 77 U/L 40-250 CREATINE KINASE-MB (KEYANA) (test bmay=233) 0.9 ng/mL 0.0-4.9 CREATINE KINASE-MB INDEX (KEYANA) (test uiei=529) 1.2 % CK-MB Reference Range:<5 Normal5-10 Borderline>10 AbnormalTROPONIN [id number] 23:03:00* Test Item Value Reference Range Comments TROPONIN I (KEYANA) (test wzgb=383) < ng/mL 0.00-0.15 Troponin I (TnI) levels must be interpreted in the context of the presenting symptoms and the clinical findings. Elevated TnI levels indicate myocardial damage, but are not specific for ischemic heart disease. Elevated TnI levels are seen in patients with other cardiac conditions (including myocarditis and congestive heart failure), and slight TnI elevations occur in patients with other conditions, including sepsis, renal failure, acidosis, acute neurological disease, and persistent tachyarrhythmia.CARDIAC PROFILE 2016-10-23 04:40:00 * Test Item Value Reference Range Comments TROPONIN I (test code=A84) <0.015 ng/mL 0.000-0.045 CKMB (test code=A49) 1.4 ng/mL <=3.6 CPK (test code=32A) 92 IU/L 39-308 XR CHEST 1 VIEW PORTABLE 2016-10-23 04:12:23CHEST AP viewLOCATION: [id number] INDICATION: Chest pain COMPARISON: November 13, 2016FINDINGS: Borderline low lung volumes. No focal consolidation or air space opacities. Nopleural effusions or pneumothorax.The heart size is normal. There is a right chest wall implantable port with itstip at the distal SVC.No acute osseous abnormality. The visualized thoracic soft tissues and upperabdomen are unremarkable.IMPRESSION:No evidence of acute chest pathology. D-DIMER 10-23 03:46:00* Test Item Value Reference Range Comments D-DIMER (test code=DDI) <200 ng/mL D-DU 0-234 D-DIMER COMMENT (test code=DDCOM) *Level to rule out DVT or PE: <235 ng/mL D- DU* PRO TIME AND PTT 2016-10-23 03:46:00* Test Item Value Reference Range Comments PT (test code=TT) 11.3 s 9.8-13.6 INR (test code=INR) 1.0 INRH (test code=INRH) SUGGESTED THERAPEUTIC RANGE FOR INR: 2.5 - 3.5 For Patients with Prosthetic Valves or Patients with recurrent Thromboembolic Events 2.0 - 3.0 For Most Other Applications PTT (test code=PTT) 29.3 s 20.2-38.0 PTTH (test code=PTTH) To monitor the effectiveness of heparin, we offer the Anti-Xa (Heparin Assay). It can be used for either unfractinated or LMW Heparin. Order Code is ANTI-XA CBC WITH MANUAL DIFF *WW*2016-10-23 03:39:00* Test Item Value Reference Range Comments WBC (test code=WBC) 6.4 10\\S\\3/uL 4.5-11.0 RBC (test code=RBC) 3.46 10\\S\\6/uL 4.20-5.60 HGB (test code=HBG) 8.5 g/dL 14.0-18.0 HCT (test code=HCT) 27.6 % 35.0-46.0 MCV (test code=MCV) 79.8 fL 80.0-94.0 MCH (test code=MCH) 24.6 pg 27.0-31.0 MCHC (test code=MCHC) 30.8 g/dL 32.0-36.0 RDW (test code=RDW) 19.2 % 11.5-14.5 PLT (test code=PLT) 382 10\\S\\3/uL 130-400 MPV (test code=MPV) 9.0 fL 9.4-12.4 NEUTROP # (test code=NE#) 2.9 10\\S\\3/uL 2.0-8.0 LYMPH # (test code=LY#) 2.5 10\\S\\3/uL 1.2-4.0 MONOCYTE # (test code=MO#) 0.9 10\\S\\3/uL 0.0-1.1 EOSINOPH # (test code=EO#) 0.1 10\\S\\3/uL 0.0-0.7 BASOPHIL # (test code=BA#) 0.0 10\\S\\3/uL 0.0-0.3 IG # (test code=IG#) 0.01 10\\S\\3/uL 0.00-0.06 NRBC # (test code=NRBC#) 0.00 10\\S\\3/uL 0.00-0.01 NEUTROPH % (test code=NE%) 44.3 % 35.0-73.0 LYMPH % (test code=LY%) 39.1 % 20.0-55.0 MONO % (test code=MO%) 14.5 % 2.5-10.0 EOSINOPH % (test code=EO%) 1.6 % 0.0-5.0 BASOPHIL % (test code=BA%) 0.3 % 0.0-2.0 IG % (test code=IG%) 0.2 % 0.0-0.8 NRBC% (test code=NRBC%) 0.0 % 0.0-0.2 MAN DIFF (test code=HMDIFF) MANUAL DIFFERENTIAL SEG (test code=SEG) 48 % 42-75 BAND (test code=BAND) 0 % 0-8 LYMPH (test code=LYMPH) 24 % 20-51 MONO (test code=MONO) 9 % 3-11 EOS (test code=EOS) 4 % <=10 BASO (test code=BASO) 0 % 0-2 RBC MORPH (test code=RBCMORN) ABNORMAL NORMAL PLT EST (test code=PLTEST) ADEQUATE ADEQUATE PLT MORPH (test code=PLTMOR) NORMAL (1.5-3 um) NORMAL ANISO (test code=ANISO) 1+ NONE HYPOCHROM (test code=HYPOC) 2+ NONE MICROCYTIC (test code=MICRO) 1+ NONE BRAIN NATRIURETIC PROTEIN *WW*2016-10-23 03:36:00* Test Item Value Reference Range Comments proBNP (test code=PBNP) 16 pg/mL 0-125 COMPREHENSIVE METABOLIC MÁRQUEZ *WW*2016-10-23 03:34:00* Test Item Value Reference Range Comments GLUCOSE (test code=06D) 97 mg/dL 75-100 SODIUM (test code=01A) 142 mmol/L 136-145 POTASSIUM (test code=01B) 3.6 mmol/L 3.6-5.1 CHLORIDE (test code=04A) 104 mmol/L 98-107 CO2 (test code=02A) 27 mmol/L 22-32 ANION GAP (test code=ANG) 14.6 mmol/L BUN (test code=05D) 16 mg/dL 7-18 CREATININE (test code=03E) 0.9 mg/dL 0.7-1.3 BUN/CREA R (test code=BCR) 18 12-20 CALCIUM (test code=09D) 8.9 mg/dL 8.3-9.5 BILI TOTAL (test code=11A) 0.6 mg/dL 0.2-1.0 PROTEIN (test code=07D) 7.6 g/dL 6.4-8.2 ALBUMIN (test code=08D) 4.0 g/dL 3.5-4.8 GLOBULIN (test code=GLB) 3.6 g/dL 1.5-3.8 ALB/GLOB (test code=AGRR) 1.1 1.0-2.6 ALK PHOS (test code=35A) 86 IU/L 42-121 AST (test code=30A) 15 IU/L <=42 ALT (test code=31A) 16 IU/L <=78 CARDIAC PROFILE *WW*2016-10-23 03:33:00* Test Item Value Reference Range Comments TROPONIN I (test code=A84) <0.015 ng/mL 0.000-0.045 CKMB (test code=A49) 1.2 ng/mL <=3.6 CPK (test code=32A) 97 IU/L 39-308 MAGNESIUM WW2016-10-23 03:28:00* Test Item Value Reference Range Comments MAGNESIUM (test code=48A) 2.2 mg/dL 1.8-2.4 Basic Metabolic [id number] 10:17:00* Test Item Value Reference Range Comments Sodium level (test ebpz=OCT3395) 139 meq/L 135-145 3.4 Chloride measurement (test eswn=PBJ7491) 105 meq/L 101-111 Bicarbonate (test code=CO2) 25 meq/L 21-31 Glucose measurement (test wltx=FEV8670) 104 mg/dL 65-120 ADA Clinical Practice Recommendation: <100 mg/dl=Normal Fasting Glucose BUN Bld-mCnc (test apuk=6368-6) 20 mg/dL 6-20 Creatinine measurement (test hmos=SSO9057) 0.84 mg/dL 0.61-1.24 The creatinine method used has been calibrated to be traceable to Isotope dilution Mass Spectrometry (IDMS). For more information: www.nkdep.nih.gov Estimated glomerular filtration rate (GFR) determination (test dnuy=94904-7) > 90 mL =/>90 FOR CHRONIC KIDNEY DISEASE: GFR STAGE DESCRIPTION =/>90 STAGE 1 NORMAL--OR-- MINIMAL KIDNEY DAMAGE WITH NORMAL GFR 60-89 STAGE 2 MILD DECREASE IN GFR 30-59 STAGE 3 MODERATE DECREASE IN GFR 15-29 STAGE 4 SEVERE DECREASE IN GFR <15 STAGE 5 KIDNEY FAILURE The Glomerular Filtration Rate (GFR) has been calculated using the IDMS-Traceable MDRD Study Equation. Calcium Level (test code=CA) 8.8 mg/dL 8.5-10.5 Primary Language Prydeinig Primary Language Luz [id number] 10:17:00* Test Item Value Reference Range Comments Troponin I (test code=TROP) 0.01 ng/mL 0-0.08 Sent to [facility] due to instrument out of service Reference Range: TROPONIN <0.034 ng/mL Equal or Less than 0.034 ng/mL --- Normal Note: Cardiac troponin begins to rise 3-4 hours after the onset of ischemia. Repeat in 4-6 hours if the sample was drawn within 3-4 hours of the onset of the symptoms and found normal. Between 0.035 and 0.120 ng/mL --- Borderline. Questionable myocaridal injury or necrosis. Note: Serial measurment may be necessary to confirm or exclude the diagnosis of myocardial injury or necrosis; Clinical correlation (symptoms, EKGs, imagining studies, and others) required; Repeat in 4-6 hours if clinically indicated. Equal or Higher than 0.121 ng/mL --- Abnormal. Myocardial injury or necrosis likely. NORMAL: 0.08 ng/mL or less INDETERMINATE: 0.09 ng/mL - 0.39 ng/mL PROBABLE MYOCARDIAL INFARCTION: 0.40 ng/ mL or greater Primary Language Prydeinig Primary Language EnglishComplete blood count (CBC) with automated white blood cell (WBC) [id number] 09:31:00* Test Item Value Reference Range Comments White blood cell count (test sttb=WPZ8732) 5.2 4.3-10.9 Blood erythrocytes count (number/volume) (test fssk=42795-1) 3.42 M/ul 4.33- 5.43 Hemoglobin measurement (test bqkh=JFC7927) 8.3 g/dL 13.6-17.9 Blood hematocrit (volume fraction) (test rsja=21151-0) 26.2 % 39.6-49.0 MCV (test arcs=43701-5) 76.5 fL 80-100 MCH (test txzt=61472-6) 24.2 pg 27.0-35.0 MCHC (test code=MCHC) 31.6 g/dL 32.0-36.0 Platelets (test code=PLT) 322 152-406 Red Cell Distribution Width (test code=RDW) 20.8 % 12.1-15.2 Blood platelet mean volume (test xgme=01596-6) 7.3 fL 7.6-11.3 Neutrophils % (test code=HEATHER%) 43.2 % 41.7-73.7 Lymphocytes/leuk NFr Bld (test wbmw=83157-3) 40.4 % 15.3-44.8 Monocyte percentage (test oobw=7562-8) 13.4 % 3.3-12.3 Eosinophil % (test rryi=080-6) 2.3 % 0-4.4 Basophil % (test dylv=59467-0) 0.7 % 0-1.3 Absolute neutrophil count (test ylpj=398-3) 2.2 1.8-8.0 Absolute lymphocyte count (test bjyc=37973-3) 2.1 0.7-4.9 Absolute monocyte count (test axbd=060-4) 0.7 0.1-1.3 Absolute Eosinophils (test code=EOA) 0.1 0-0.5 Absolute Basophils (test code=BASA) 0.0 0-0.5 Primary Language EnglishBlood smear scan (BSS)2016-10-21 09:31:00* Test Item Value Reference Range Comments Blood morphology interpretation narrative (test flwt=62167-9) NOTED NOT SEEN Blood anisocytosis detection (test vitv=81279-0) 2+ Microcytosis evaluation panel (test zqfe=MQQ9154) 2+ Primary Language EnglishPTT, Activated Partial [id number] 06:47:00* Test Item Value Reference Range Comments PTT, Activated Partial Thromb (test code=PTT) 156.7 s 24.3-36.9 Repeated & Called to HEATHER MCDANIELS LVN on 10/21/16 at 0646 by KAYLEE Was there 100% Readback? YES Primary Language EnglishCREATINE KINASE (CK), TOTAL AND [id number] 08:12:00* Test Item Value Reference Range Comments CREATINE KINASE TOTAL (BEAKER) (test aygp=378) 91 U/L 40-250 CREATINE KINASE-MB (BEAKER) (test cosc=568) 1.0 ng/mL 0.0-4.9 CREATINE KINASE-MB INDEX (BEAKER) (test zwoj=649) 1.1 % CK-MB Reference Range:<5 Normal5-10 Borderline>10 AbnormalTROPONIN [id number] 08:12:00* Test Item Value Reference Range Comments TROPONIN I (BEAKER) (test dnjd=124) < ng/mL 0.00-0.15 Troponin I (TnI) levels must be interpreted in the context of the presenting symptoms and the clinical findings. Elevated TnI levels indicate myocardial damage, but are not specific for ischemic heart disease. Elevated TnI levels are seen in patients with other cardiac conditions (including myocarditis and congestive heart failure), and slight TnI elevations occur in patients with other conditions, including sepsis, renal failure, acidosis, acute neurological disease, and persistent tachyarrhythmia.CBC W/PLT COUNT & AUTO [id number]- [id number] 07:57:00* Test Item Value Reference Range Comments WHITE BLOOD CELL COUNT (BEAKER) (test havp=737) 7.7 K/ L 4.0-10.0 RED BLOOD CELL COUNT (BEAKER) (test ekwu=579) 3.82 M/ L 4.20-5.80 HEMOGLOBIN (BEAKER) (test jsem=581) 9.3 GM/DL 13.0-16.8 HEMATOCRIT (BEAKER) (test mfqa=545) 29.3 % 40.0-50.0 MEAN CORPUSCULAR VOLUME (BEAKER) (test frbx=925) 76.6 fL 82.0-98.0 MEAN CORPUSCULAR HEMOGLOBIN (BEAKER) (test mhtn=009) 24.3 pg 27.0-33.0 MEAN CORPUSCULAR HEMOGLOBIN CONC (BEAKER) (test wqsa=079) 31.8 GM/DL 32.0- 36.0 RED CELL DISTRIBUTION WIDTH (BEAKER) (test hpqx=160) 22.1 % 10.3-14.2 PLATELET COUNT (BEAKER) (test xvrj=562) 341 K/CU MM 150-430 MEAN PLATELET VOLUME (BEAKER) (test hawu=385) 7.2 fL 6.5-10.5 NUCLEATED RED BLOOD CELLS (BEAKER) (test hvjy=799) 0 /100 WBC 0-0 NEUTROPHILS RELATIVE PERCENT (BEAKER) (test kuhv=480) 50 % LYMPHOCYTES RELATIVE PERCENT (BEAKER) (test rivn=973) 34 % MONOCYTES RELATIVE PERCENT (BEAKER) (test ebhh=993) 14 % EOSINOPHILS RELATIVE PERCENT (BEAKER) (test jrox=614) 1 % BASOPHILS RELATIVE PERCENT (BEAKER) (test haba=667) 0 % NEUTROPHILS ABSOLUTE COUNT (BEAKER) (test vcjw=681) 3.90 K/ L 1.80-8.00 LYMPHOCYTES ABSOLUTE COUNT (BEAKER) (test qbfz=475) 2.60 K/ L 1.48-4.50 MONOCYTES ABSOLUTE COUNT (BEAKER) (test ambi=815) 1.10 K/ L 0.00-1.30 EOSINOPHILS ABSOLUTE COUNT (BEAKER) (test nnqd=277) 0.10 K/ L 0.00-0.50 BASOPHILS ABSOLUTE COUNT (BEAKER) (test plib=550) 0.00 K/ L 0.00-0.20 (MANUAL DIFFERENTIAL)2016-10-11 07:57:00* Test Item Value Reference Range Comments TOTAL COUNTED (BEAKER) (test rchq=6718) WBC MORPHOLOGY (BEAKER) (test pmti=738) Normal PLT MORPHOLOGY (BEAKER) (test iqid=708) Normal ANISOCYTOSIS (BEAKER) (test cdzl=084) 1+ few HYPOCHROMIA (BEAKER) (test qrrw=119) 2+ moderate CREATINE KINASE (CK), TOTAL AND [id number] 06:53:00* Test Item Value Reference Range Comments CREATINE KINASE TOTAL (BEAKER) (test eifv=939) 116 U/L 40-250 CREATINE KINASE-MB (BEAKER) (test pctg=256) 1.1 ng/mL 0.0-4.9 CREATINE KINASE-MB INDEX (BEAKER) (test kfty=045) 0.9 % CK-MB Reference Range:<5 Normal5-10 Borderline>10 AbnormalTROPONIN [id number] 06:53:00* Test Item Value Reference Range Comments TROPONIN I (BEAKER) (test pgrh=059) < ng/mL 0.00-0.15 Troponin I (TnI) levels must be interpreted in the context of the presenting symptoms and the clinical findings. Elevated TnI levels indicate myocardial damage, but are not specific for ischemic heart disease. Elevated TnI levels are seen in patients with other cardiac conditions (including myocarditis and congestive heart failure), and slight TnI elevations occur in patients with other conditions, including sepsis, renal failure, acidosis, acute neurological disease, and persistent tachyarrhythmia.BASIC METABOLIC [id number] 06:45:00 * Test Item Value Reference Range Comments SODIUM (BEAKER) (test aplw=181) 143 meq/L 135-148 POTASSIUM (BEAKER) (test lsvm=389) 3.8 meq/L 3.6-5.5 CHLORIDE (BEAKER) (test fbcy=826) 107 meq/L 98-106 CO2 (BEAKER) (test fifz=405) 26 meq/L 20-29 BLOOD UREA NITROGEN (BEAKER) (test pdqo=744) 15 mg/dL 10-26 CREATININE (BEAKER) (test bxqo=688) 1.00 mg/dL 0.50-1.20 GLUCOSE RANDOM (BEAKER) (test mhye=963) 106 mg/dL 70-110 CALCIUM (BEAKER) (test xayq=819) 8.8 mg/dL 8.5-10.5 EGFR (BEAKER) (test ydop=5757) 80 mL/min/1.73 sq m ESTIMATED GFR IS NOT ACCURATE CREATININE CLEARANCE IN PREDICTING GLOMERULAR FILTRATION RATE. ESTIMATED GFR IS NOT APPLICABLE FOR DIALYSIS PATIENTS. TROPONIN [id number] 22:50:00* Test Item Value Reference Range Comments TROPONIN I (BEAKER) (test kjiw=116) < ng/mL 0.00-0.15 Troponin I (TnI) levels must be interpreted in the context of the presenting symptoms and the clinical findings. Elevated TnI levels indicate myocardial damage, but are not specific for ischemic heart disease. Elevated TnI levels are seen in patients with other cardiac conditions (including myocarditis and congestive heart failure), and slight TnI elevations occur in patients with other conditions, including sepsis, renal failure, acidosis, acute neurological disease, and persistent tachyarrhythmia.CREATINE KINASE (CK), TOTAL AND [id number] 22:45:00* Test Item Value Reference Range Comments CREATINE KINASE TOTAL (BEAKER) (test bcin=034) 100 U/L 40-250 CREATINE KINASE-MB (BEAKER) (test wign=576) 1.0 ng/mL 0.0-4.9 CREATINE KINASE-MB INDEX (BEAKER) (test zqch=325) 1.0 % CK-MB Reference Range:<5 Normal5-10 Borderline>10 AbnormalPROTHROMBIN TIME/ [id number] 22:35:00* Test Item Value Reference Range Comments PROTIME (BEAKER) (test wndo=296) 10.4 seconds 9.3-12.0 INR (BEAKER) (test oqeq=853) 1.0 <=5.9 RECOMMENDED COUMADIN/WARFARIN INR THERAPY RANGESSTANDARD DOSE: 2.0 - 3.0 Includes: PROPHYLAXIS for venous thrombosis, systemic embolization; TREATMENT for venous thrombosis and/or pulmonary embolus.HIGH RISK: Target INR is 2.5-3.5 for patients with mechanical heart valves.[id number] 22:35:00* Test Item Value Reference Range Comments PARTIAL THROMBOPLASTIN TIME (BEAKER) (test eqmj=975) 23.1 seconds 23.0-35.0 TROPONIN [id number] 15:08:00* Test Item Value Reference Range Comments TROPONIN I (BEAKER) (test pwgz=822) < ng/mL 0.00-0.15 Troponin I (TnI) levels must be interpreted in the context of the presenting symptoms and the clinical findings. Elevated TnI levels indicate myocardial damage, but are not specific for ischemic heart disease. Elevated TnI levels are seen in patients with other cardiac conditions (including myocarditis and congestive heart failure), and slight TnI elevations occur in patients with other conditions, including sepsis, renal failure, acidosis, acute neurological disease, and persistent tachyarrhythmia.CREATINE KINASE (CK), TOTAL AND [id number] 15:07:00* Test Item Value Reference Range Comments CREATINE KINASE TOTAL (BEAKER) (test zteo=831) 355 U/L 40-250 CREATINE KINASE-MB (BEAKER) (test tjwn=539) 2.2 ng/mL 0.0-4.9 CREATINE KINASE-MB INDEX (BEAKER) (test gmzw=116) 0.6 % CK-MB Reference Range:<5 Normal5-10 Borderline>10 AbnormalCBC W/PLT COUNT & AUTO [id number] 06:58:00* Test Item Value Reference Range Comments WHITE BLOOD CELL COUNT (BEAKER) (test uxif=726) 6.8 K/ L 4.0-10.0 RED BLOOD CELL COUNT (BEAKER) (test ralj=345) 3.57 M/ L 4.20-5.80 HEMOGLOBIN (BEAKER) (test rbkr=883) 8.6 GM/DL 13.0-16.8 HEMATOCRIT (BEAKER) (test upnl=440) 28.0 % 40.0-50.0 MEAN CORPUSCULAR VOLUME (BEAKER) (test nini=686) 78.5 fL 82.0-98.0 MEAN CORPUSCULAR HEMOGLOBIN (BEAKER) (test hjtj=283) 24.2 pg 27.0-33.0 MEAN CORPUSCULAR HEMOGLOBIN CONC (BEAKER) (test lbyf=184) 30.9 GM/DL 32.0- 36.0 RED CELL DISTRIBUTION WIDTH (BEAKER) (test abpl=751) 22.6 % 10.3-14.2 PLATELET COUNT (BEAKER) (test ofkk=527) 297 K/CU MM 150-430 MEAN PLATELET VOLUME (BEAKER) (test sorl=459) 7.2 fL 6.5-10.5 NUCLEATED RED BLOOD CELLS (BEAKER) (test tyws=514) 0 /100 WBC 0-0 NEUTROPHILS RELATIVE PERCENT (BEAKER) (test xyql=510) 46 % LYMPHOCYTES RELATIVE PERCENT (BEAKER) (test rvdm=310) 38 % MONOCYTES RELATIVE PERCENT (BEAKER) (test phxj=257) 14 % EOSINOPHILS RELATIVE PERCENT (BEAKER) (test thlq=874) 2 % BASOPHILS RELATIVE PERCENT (BEAKER) (test tajy=624) 0 % NEUTROPHILS ABSOLUTE COUNT (BEAKER) (test vzzn=545) 3.10 K/ L 1.80-8.00 LYMPHOCYTES ABSOLUTE COUNT (BEAKER) (test gvwm=181) 2.60 K/ L 1.48-4.50 MONOCYTES ABSOLUTE COUNT (BEAKER) (test ltxg=781) 0.90 K/ L 0.00-1.30 EOSINOPHILS ABSOLUTE COUNT (BEAKER) (test gglm=189) 0.20 K/ L 0.00-0.50 BASOPHILS ABSOLUTE COUNT (BEAKER) (test kqug=219) 0.00 K/ L 0.00-0.20 (MANUAL DIFFERENTIAL)2016-09-25 06:58:00* Test Item Value Reference Range Comments TOTAL COUNTED (BEAKER) (test egse=2717) WBC MORPHOLOGY (BEAKER) (test nmth=346) Normal PLT MORPHOLOGY (BEAKER) (test kqxb=114) Normal ANISOCYTOSIS (BEAKER) (test tnrp=145) 2+ moderate HYPOCHROMIA (BEAKER) (test umgz=100) 2+ moderate MICROCYTES (BEAKER) (test pzct=938) 1+ few TROPONIN [id number] 06:05:00* Test Item Value Reference Range Comments TROPONIN I (BEAKER) (test bukv=471) < ng/mL 0.00-0.15 Troponin I (TnI) levels must be interpreted in the context of the presenting symptoms and the clinical findings. Elevated TnI levels indicate myocardial damage, but are not specific for ischemic heart disease. Elevated TnI levels are seen in patients with other cardiac conditions (including myocarditis and congestive heart failure), and slight TnI elevations occur in patients with other conditions, including sepsis, renal failure, acidosis, acute neurological disease, and persistent tachyarrhythmia.CREATINE KINASE (CK), TOTAL AND [id number] 06:04:00* Test Item Value Reference Range Comments CREATINE KINASE TOTAL (BEAKER) (test ufqh=768) 298 U/L 40-250 CREATINE KINASE-MB (BEAKER) (test atdj=750) 2.1 ng/mL 0.0-4.9 CREATINE KINASE-MB INDEX (BEAKER) (test gbdv=359) 0.7 % CK-MB Reference Range:<5 Normal5-10 Borderline>10 AbnormalCOMPREHENSIVE METABOLIC [id number] 06:00:00* Test Item Value Reference Range Comments TOTAL PROTEIN (BEAKER) (test dctz=869) 6.5 gm/dL 6.0-8.5 ALBUMIN (BEAKER) (test gzoc=4200) 4.0 g/dL 3.5-5.0 ALKALINE PHOSPHATASE (BEAKER) (test zzav=441) 76 U/L 30-115 BILIRUBIN TOTAL (BEAKER) (test omza=033) 0.5 mg/dL 0.1-1.2 SODIUM (BEAKER) (test paty=800) 142 meq/L 135-148 POTASSIUM (BEAKER) (test vnwv=664) 3.5 meq/L 3.6-5.5 CHLORIDE (BEAKER) (test spyu=756) 106 meq/L 98-106 CO2 (BEAKER) (test hbia=190) 26 meq/L 20-29 BLOOD UREA NITROGEN (BEAKER) (test pzgx=067) 14 mg/dL 10-26 CREATININE (BEAKER) (test uuwq=096) 0.90 mg/dL 0.50-1.20 GLUCOSE RANDOM (BEAKER) (test lrtg=501) 79 mg/dL 70-110 CALCIUM (BEAKER) (test fkye=755) 8.8 mg/dL 8.5-10.5 AST (SGOT) (BEAKER) (test xaje=620) 16 U/L 5-40 ALT (SGPT) (BEAKER) (test ridz=327) 10 U/L 5-50 EGFR (BEAKER) (test mxhm=4750) 91 mL/min/1.73 sq m ESTIMATED GFR IS NOT ACCURATE CREATININE CLEARANCE IN PREDICTING GLOMERULAR FILTRATION RATE. ESTIMATED GFR IS NOT APPLICABLE FOR DIALYSIS PATIENTS. CREATINE KINASE (CK), TOTAL AND [id number] 04:57:00* Test Item Value Reference Range Comments CREATINE KINASE TOTAL (BEAKER) (test bais=101) 653 U/L 30-300 CREATINE KINASE-MB (BEAKER) (test ogrq=063) 0.8 ng/mL 0.0-4.9 CREATINE KINASE-MB INDEX (BEAKER) (test nplh=418) 0.1 % CK-MB Reference Range:<5 Normal5-10 Borderline>10 AbnormalTROPONIN [id number] 04:56:00* Test Item Value Reference Range Comments TROPONIN I (BEAKER) (test sjpg=847) 0.03 ng/mL 0.00-0.15 Troponin I (TnI) levels must be interpreted in the context of the presenting symptoms and the clinical findings. Elevated TnI levels indicate myocardial damage, but are not specific for ischemic heart disease. Elevated TnI levels are seen in patients with other cardiac conditions (including myocarditis and congestive heart failure), and slight TnI elevations occur in patients with other conditions, including sepsis, renal failure, acidosis, acute neurological disease, and persistent tachyarrhythmia.LIPID [id number] 04:47:00* Test Item Value Reference Range Comments TRIGLYCERIDES (BEAKER) (test ksek=748) 79 mg/dL CHOLESTEROL (BEAKER) (test nnmz=186) 206 mg/dL HDL CHOLESTEROL (BEAKER) (test thsm=879) 53 mg/dL LDL CHOLESTEROL CALCULATED (BEAKER) (test nwjw=312) 137 mg/dL Triglyceride Reference Range: Low Risk <150 Borderline 150-199 High Risk 200-499 Very High Risk >=500Cholesterol Reference Range: Low Risk <200 Borderline 200-239 High Risk >240HDL Cholesterol Reference Range: Low Risk >=60 High Risk <40LDL Cholesterol Reference Range: Optimal <100 Near Optimal 100-129 Borderline 130-159 High 160-189 Very High >=190 COMPREHENSIVE METABOLIC [id number] 04:47:00* Test Item Value Reference Range Comments TOTAL PROTEIN (BEAKER) (test gzir=225) 7.2 gm/dL 6.0-8.5 ALBUMIN (BEAKER) (test pvxz=4867) 4.1 g/dL 3.5-5.0 ALKALINE PHOSPHATASE (BEAKER) (test vyui=092) 78 U/L 30-115 BILIRUBIN TOTAL (BEAKER) (test recx=669) 0.5 mg/dL 0.1-1.3 SODIUM (BEAKER) (test qduy=596) 141 meq/L 135-148 POTASSIUM (BEAKER) (test setx=989) 3.9 meq/L 3.5-5.5 CHLORIDE (BEAKER) (test gdhk=445) 109 meq/L 98-106 CO2 (BEAKER) (test neim=559) 23 meq/L 20-31 BLOOD UREA NITROGEN (BEAKER) (test accw=288) 9 mg/dL 10-26 CREATININE (BEAKER) (test lxux=663) 0.95 mg/dL 0.50-1.20 GLUCOSE RANDOM (BEAKER) (test vzkz=427) 83 mg/dL 70-110 CALCIUM (BEAKER) (test radp=834) 8.8 mg/dL 8.5-10.5 AST (SGOT) (BEAKER) (test zler=290) 28 U/L 5-40 ALT (SGPT) (BEAKER) (test pbdh=831) 27 U/L 6-50 EGFR (BEAKER) (test dizw=0367) 86 mL/min/1.73 sq m ESTIMATED GFR IS NOT ACCURATE CREATININE CLEARANCE IN PREDICTING GLOMERULAR FILTRATION RATE. ESTIMATED GFR IS NOT APPLICABLE FOR DIALYSIS PATIENTS. CBC W/PLT COUNT & AUTO [id number] 04:19:00* Test Item Value Reference Range Comments WHITE BLOOD CELL COUNT (BEAKER) (test kgfe=846) 6.6 K/ L 4.0-10.0 RED BLOOD CELL COUNT (BEAKER) (test dwth=697) 3.66 M/ L 4.20-5.80 HEMOGLOBIN (BEAKER) (test ebtr=162) 8.5 GM/DL 13.0-16.8 HEMATOCRIT (BEAKER) (test tlkg=816) 27.3 % 40.0-50.0 MEAN CORPUSCULAR VOLUME (BEAKER) (test rljq=069) 74.7 fL 82.0-98.0 MEAN CORPUSCULAR HEMOGLOBIN (BEAKER) (test vnqo=912) 23.2 pg 27.0-33.0 MEAN CORPUSCULAR HEMOGLOBIN CONC (BEAKER) (test sias=315) 31.0 GM/DL 32.0- 36.0 RED CELL DISTRIBUTION WIDTH (BEAKER) (test hpvv=837) 19.2 % 12.0-15.0 PLATELET COUNT (BEAKER) (test gady=849) 348 K/CU MM 150-430 MEAN PLATELET VOLUME (BEAKER) (test bnbb=226) 6.8 fL 6.5-10.5 NUCLEATED RED BLOOD CELLS (BEAKER) (test thef=875) 0 /100 WBC 0-0 NEUTROPHILS RELATIVE PERCENT (BEAKER) (test qqxl=647) 49 % LYMPHOCYTES RELATIVE PERCENT (BEAKER) (test ebxp=292) 39 % MONOCYTES RELATIVE PERCENT (BEAKER) (test abbe=984) 9 % EOSINOPHILS RELATIVE PERCENT (BEAKER) (test rhzc=982) 1 % BASOPHILS RELATIVE PERCENT (BEAKER) (test lrdn=914) 2 % NEUTROPHILS ABSOLUTE COUNT (BEAKER) (test ngli=591) 3.20 K/ L 1.80-8.00 LYMPHOCYTES ABSOLUTE COUNT (BEAKER) (test zqaq=234) 2.60 K/ L 1.48-4.50 MONOCYTES ABSOLUTE COUNT (BEAKER) (test fzyi=519) 0.60 K/ L 0.00-1.30 EOSINOPHILS ABSOLUTE COUNT (BEAKER) (test mcuq=517) 0.10 K/ L 0.00-0.50 BASOPHILS ABSOLUTE COUNT (BEAKER) (test ahaw=527) 0.10 K/ L 0.00-0.20 TROPONIN [id number] 13:44:00* Test Item Value Reference Range Comments TROPONIN I (BEAKER) (test kjui=628) < ng/mL 0.00-0.15 Troponin I (TnI) levels must be interpreted in the context of the presenting symptoms and the clinical findings. Elevated TnI levels indicate myocardial damage, but are not specific for ischemic heart disease. Elevated TnI levels are seen in patients with other cardiac conditions (including myocarditis and congestive heart failure), and slight TnI elevations occur in patients with other conditions, including sepsis, renal failure, acidosis, acute neurological disease, and persistent tachyarrhythmia.CREATINE KINASE (CK), TOTAL AND [id number] 13:43:00* Test Item Value Reference Range Comments CREATINE KINASE TOTAL (BEAKER) (test khmh=760) 61 U/L 40-250 CREATINE KINASE-MB (BEAKER) (test xfjk=228) 1.0 ng/mL 0.0-4.9 CREATINE KINASE-MB INDEX (BEAKER) (test tloc=164) 1.6 % CK-MB Reference Range:<5 Normal5-10 Borderline>10 AbnormalTROPONIN [id number] 07:21:00* Test Item Value Reference Range Comments TROPONIN I (BEAKER) (test soto=991) < ng/mL 0.00-0.15 Troponin I (TnI) levels must be interpreted in the context of the presenting symptoms and the clinical findings. Elevated TnI levels indicate myocardial damage, but are not specific for ischemic heart disease. Elevated TnI levels are seen in patients with other cardiac conditions (including myocarditis and congestive heart failure), and slight TnI elevations occur in patients with other conditions, including sepsis, renal failure, acidosis, acute neurological disease, and persistent tachyarrhythmia.CREATINE KINASE (CK), TOTAL AND [id number] 07:20:00* Test Item Value Reference Range Comments CREATINE KINASE TOTAL (BEAKER) (test nwpy=384) 58 U/L 40-250 CREATINE KINASE-MB (BEAKER) (test eyzv=131) 0.9 ng/mL 0.0-4.9 CREATINE KINASE-MB INDEX (BEAKER) (test uydt=984) 1.6 % CK-MB Reference Range:<5 Normal5-10 Borderline>10 AbnormalCBC W/PLT COUNT & AUTO [id number] 22:21:00* Test Item Value Reference Range Comments WHITE BLOOD CELL COUNT (BEAKER) (test pjqu=592) 7.3 K/ L 4.0-10.0 RED BLOOD CELL COUNT (BEAKER) (test ohjg=875) 4.00 M/ L 4.20-5.80 HEMOGLOBIN (BEAKER) (test jtfo=529) 9.4 GM/DL 13.0-16.8 HEMATOCRIT (BEAKER) (test pedx=344) 30.0 % 40.0-50.0 MEAN CORPUSCULAR VOLUME (BEAKER) (test oatx=574) 74.9 fL 82.0-98.0 MEAN CORPUSCULAR HEMOGLOBIN (BEAKER) (test wvzz=657) 23.5 pg 27.0-33.0 MEAN CORPUSCULAR HEMOGLOBIN CONC (BEAKER) (test enxo=599) 31.4 GM/DL 32.0- 36.0 RED CELL DISTRIBUTION WIDTH (BEAKER) (test hxxh=920) 20.1 % 10.3-14.2 PLATELET COUNT (BEAKER) (test unrr=646) 392 K/CU MM 150-430 MEAN PLATELET VOLUME (BEAKER) (test ehav=613) 6.8 fL 6.5-10.5 NUCLEATED RED BLOOD CELLS (BEAKER) (test hnti=264) 0 /100 WBC 0-0 NEUTROPHILS RELATIVE PERCENT (BEAKER) (test uykp=306) 45 % LYMPHOCYTES RELATIVE PERCENT (BEAKER) (test bdsw=901) 40 % MONOCYTES RELATIVE PERCENT (BEAKER) (test dzpb=136) 14 % EOSINOPHILS RELATIVE PERCENT (BEAKER) (test gobk=806) 1 % BASOPHILS RELATIVE PERCENT (BEAKER) (test ezup=276) 0 % NEUTROPHILS ABSOLUTE COUNT (BEAKER) (test usly=734) 3.30 K/ L 1.80-8.00 LYMPHOCYTES ABSOLUTE COUNT (BEAKER) (test icax=324) 2.90 K/ L 1.48-4.50 MONOCYTES ABSOLUTE COUNT (BEAKER) (test cctq=474) 1.00 K/ L 0.00-1.30 EOSINOPHILS ABSOLUTE COUNT (BEAKER) (test duzc=838) 0.10 K/ L 0.00-0.50 BASOPHILS ABSOLUTE COUNT (BEAKER) (test trjf=451) 0.00 K/ L 0.00-0.20 (MANUAL DIFFERENTIAL)2016-08-02 22:21:00* Test Item Value Reference Range Comments TOTAL COUNTED (BEAKER) (test gozb=1272) WBC MORPHOLOGY (BEAKER) (test atgd=270) Normal PLT MORPHOLOGY (BEAKER) (test azyx=457) Normal ANISOCYTOSIS (BEAKER) (test cybc=088) 2+ moderate HYPOCHROMIA (BEAKER) (test omzd=149) 1+ few TROPONIN [id number] 22:13:00* Test Item Value Reference Range Comments TROPONIN I (BEAKER) (test pwyh=882) < ng/mL 0.00-0.15 Troponin I (TnI) levels must be interpreted in the context of the presenting symptoms and the clinical findings. Elevated TnI levels indicate myocardial damage, but are not specific for ischemic heart disease. Elevated TnI levels are seen in patients with other cardiac conditions (including myocarditis and congestive heart failure), and slight TnI elevations occur in patients with other conditions, including sepsis, renal failure, acidosis, acute neurological disease, and persistent tachyarrhythmia.CREATINE KINASE (CK), TOTAL AND [id number] 22:12:00* Test Item Value Reference Range Comments CREATINE KINASE TOTAL (BEAKER) (test nxlc=171) 68 U/L 40-250 CREATINE KINASE-MB (BEAKER) (test hgto=920) 1.0 ng/mL 0.0-4.9 CREATINE KINASE-MB INDEX (BEAKER) (test iulv=677) 1.5 % CK-MB Reference Range:<5 Normal5-10 Borderline>10 AbnormalCOMPREHENSIVE METABOLIC [id number] 22:05:00* Test Item Value Reference Range Comments TOTAL PROTEIN (BEAKER) (test olsz=934) 8.0 gm/dL 6.0-8.5 ALBUMIN (BEAKER) (test sobs=7839) 4.7 g/dL 3.5-5.0 ALKALINE PHOSPHATASE (BEAKER) (test crfh=906) 84 U/L 30-115 BILIRUBIN TOTAL (BEAKER) (test iefz=045) 0.5 mg/dL 0.1-1.2 SODIUM (BEAKER) (test iqdt=865) 139 meq/L 135-148 POTASSIUM (BEAKER) (test hczq=995) 4.0 meq/L 3.6-5.5 CHLORIDE (BEAKER) (test qycd=037) 103 meq/L 98-106 CO2 (BEAKER) (test vztl=732) 26 meq/L 20-29 BLOOD UREA NITROGEN (BEAKER) (test fjtw=774) 13 mg/dL 10-26 CREATININE (BEAKER) (test ihft=584) 1.00 mg/dL 0.50-1.20 GLUCOSE RANDOM (BEAKER) (test gqdw=524) 118 mg/dL 70-110 CALCIUM (BEAKER) (test kpyp=880) 10.1 mg/dL 8.5-10.5 AST (SGOT) (BEAKER) (test uvjn=992) 19 U/L 5-40 ALT (SGPT) (BEAKER) (test lysf=701) 15 U/L 5-50 EGFR (BEAKER) (test rxjq=0164) 81 mL/min/1.73 sq m ESTIMATED GFR IS NOT ACCURATE CREATININE CLEARANCE IN PREDICTING GLOMERULAR FILTRATION RATE. ESTIMATED GFR IS NOT APPLICABLE FOR DIALYSIS PATIENTS. PROTHROMBIN TIME/[id number] 21:58:00* Test Item Value Reference Range Comments PROTIME (BEAKER) (test aonh=647) 10.5 seconds 9.3-12.0 INR (BEAKER) (test hmir=002) 1.0 <=5.9 RECOMMENDED COUMADIN/WARFARIN INR THERAPY RANGESSTANDARD DOSE: 2.0 - 3.0 Includes: PROPHYLAXIS for venous thrombosis, systemic embolization; TREATMENT for venous thrombosis and/or pulmonary embolus.HIGH RISK: Target INR is 2.5-3.5 for patients with mechanical heart valves.[id number] 21:58:00* Test Item Value Reference Range Comments PARTIAL THROMBOPLASTIN TIME (BEAKER) (test dksy=087) 32.3 seconds 23.0-35.0
[2017-09-05] MEDS: DIPHENHYDRAMINE HCL INJ 50 MG/ML VIAL IV ONE (18:45)
[2017-09-05] MEDS: MORPHINE SULFATE 2 MG/ML SYR IV STA (18:48)
[2017-09-05] MEDS ORDERED: PLAVIX75 MG PO (19:07)
[2017-09-05] MEDS ORDERED: LIPITOR20 MG (19:08)
[2017-09-05] MEDS ORDERED: LISINOPRIL10 MG PO (19:08)
[2017-09-05] MEDS ORDERED: NORCO 10-325 T1 EACH (19:09)
[2017-09-05] MEDS ORDERED: ZANAFLEX4 MG (19:10)
[2017-09-05] MEDS ORDERED: BUPRENORPHINE HC2 MG (19:13)
[2017-09-05] MEDS: MORPHINE SULFATE 5 MG/ML VIAL IV ONE (19:30)
[2017-09-05 20:56] VITALS: BP 135/82
[2017-09-11] MEDS ORDERED: IOPAMIDOL 370 MG/ML 50ML INFUS..BTL INJ ONE (14:30)
== END 2017-09-05 20:37 | disposition home or self-care (01) ==
LOC: FSED 18:00
DX: R07.9 Chest pain, unspecified (principal); R00.0 Tachycardia, unspecified; Z86.711 Personal history of pulmonary embolism; I25.2 Old myocardial infarction; Z95.5 Presence of coronary angioplasty implant and graft; D68.51 Activated protein C resistance; D64.9 Anemia, unspecified; E78.5 Hyperlipidemia, unspecified; R73.9 Hyperglycemia, unspecified; Z79.02 Long term (current) use of antithrombotics/antiplatelets
CPT/HCPCS: 71275; 80053; 82553; 84484; 85025; 85379; 94760; 96374; 99283; J1200; J2270 ×2

== ENCOUNTER 2023-12-24 10:19 | Emergency (ER) | payer SELFPAY ==
[~2023-12-24] VITALS: Ht 170.2 cm; Wt 81.6 kg
[~2023-12-24 10:19] MED LIST: BUPRENORPHINE HC2 MG; LIPITOR20 MG; LISINOPRIL10 MG PO; NORCO 10-325 T1 EACH; PLAVIX75 MG PO; ZANAFLEX4 MG
[2023-12-24 10:25] VITALS: TEMP 98.4
[2023-12-24 11:03] LABS: BASOPHILS % 0.4 % (0.0-1.0); EOSINOPHILS # (AUTO) 0.1 (0.0-0.4); EOSINOPHILS % 1.6 % (0.0-6.0); HEMATOCRIT 37.9 % (38.2-49.6); HEMOGLOBIN 12.4 g/dL (14.0-18.0); LYMPHOCYTES # (AUTO) 2.6 (1.0-3.2); LYMPHOCYTES % 33.4 % (18.0-39.1); MEAN CORPUSCULAR HGB CONC 32.7 g/dL (31-35); MEAN CORPUSCULAR VOLUME 91.8 fL (81-99); MONOCYTES # (AUTO) 0.6 (0.2-0.8); MONOCYTES % 7.6 % (4.4-11.3); NEUTROPHILS # (AUTO) 4.3 (2.1-6.9); NEUTROPHILS % 56.9 % (38.7-80.0); PLATELET COUNT 317 x10e3/uL (140-360); RED BLOOD COUNT 4.13 x10e6/uL (4.3-5.7); RED CELL DISTRIBUTION WIDTH 13.2 % (11.7-14.4); WHITE BLOOD COUNT 7.63 x10e3/uL (4.8-10.8)
[2023-12-24 11:17] LABS: INR 0.85; PARTIAL THROMBOPLASTIN TIME 27.5 seconds (23.8-35.5); PROTHROMBIN TIME 12.3 seconds (11.9-14.5)
[2023-12-24 11:19] LABS: ANION GAP 16.6 mmol/L (8-16); BLOOD UREA NITROGEN 19 mg/dL (7-26); BUN/CREATININE RATIO 19 (6-25); CALCIUM 10.2 mg/dL (8.4-10.2); CARBON DIOXIDE 21 mmol/L (22-29); CHLORIDE 105 mmol/L (98-107); CREATINE KINASE 138 IU/L (30-200); CREATININE, SERUM 0.98 mg/dL (0.72-1.25); EST GLOMERULAR FILTRATION RATE 92 ML/MIN (>=60); GLUCOSE 165 mg/dL (74-118); POTASSIUM 3.6 mmol/L (3.5-5.1); SODIUM 139 mmol/L (136-145)
[2023-12-24] MEDS: HYDROMORPHONE 1MG/1ML INJ IV STA ×3 (11:21→15:48)
[2023-12-24] MEDS ORDERED: IOPAMIDOL 370 MG/ML 100 ML INFUS..BTL INJ ONE (11:26)
[2023-12-24 11:36] LABS: TROPONIN I < 0.001 ng/mL (0-0.300)
[2023-12-24] MEDS: SODIUM CHLORIDE 0.9% 1000ML 1,000 ML IV SCH (12:03)
[2023-12-24 13:56] VITALS: PULSE 94; RESP 18; O2SAT 98
== END 2023-12-24 17:12 | disposition home or self-care (01) ==
LOC: ER 10:26
DX: R07.9 Chest pain, unspecified (principal); R00.0 Tachycardia, unspecified; D68.51 Activated protein C resistance; Z79.01 Long term (current) use of anticoagulants; I25.2 Old myocardial infarction; Z86.711 Personal history of pulmonary embolism
CPT/HCPCS: 36415; 71260; 80048; 82550; 84484; 85025; 85610; 85730; 93005; 99284; J1170; J7030; Q9967

== ENCOUNTER 2023-12-26 19:58 | Emergency (ER) | payer SELFPAY ==
[~2023-12-26] VITALS: Ht 170.2 cm; Wt 81.6 kg
[2023-12-26 20:00] VITALS: TEMP 98.3
[2023-12-26 21:00] VITALS: PULSE 74; RESP 18; O2SAT 98
[2023-12-26] MEDS ORDERED: HEPARIN 500 UNITS/5ML MDV INJ STA (22:04)
== END 2023-12-26 22:30 | disposition left against medical advice (07) ==
LOC: ER 20:16
DX: R00.0 Tachycardia, unspecified (principal); R07.9 Chest pain, unspecified; D68.51 Activated protein C resistance; I25.2 Old myocardial infarction; Z86.718 Personal history of other venous thrombosis and embolism
CPT/HCPCS: 93005; 99283